=== PATIENT | female | born 1940 | race Caucasian/White ===

== ENCOUNTER → 2018-07-28 16:46 | Outpatient (CLI) | payer MEDICARE, OTHER, SELFPAY ==
--- NOTE | 2018-07-31 13:37 | PM.PFT.1 ---
Pulmonary Function Test Referral & Results Date Patient Seen: 07/28/18 Requesting provider: Aron Arango Indication: R06.02 Results: The spirometry demonstrates an FVC of 1.93 L which is 82% of predicted. The FEV1 was measured at 1.55 L which is 90% of predicted. The FEV1/FVC ratio was 81 which is 108% of predicted. Following the administration of bronchodilator there was 11% improvement in FEV1 and a 61% improvement in FEF 25-75%. Lung volumes show an SVC of 2.25 L which is 93% of predicted. The diffusing capacity was measured at 19.86 which is 98% of predicted. The maximum voluntary ventilation was reduced Interpretation: This study demonstrates very mild obstructive lung disease based on minimal reduction in FEV1 and shape of flow volume loop. There is evidence of minimal benefit following bronchodilator administration with an 11% improvement in FEV1 but more impressively a 61% improvement in FEF 25-75%, which suggest more significant improvement in small airway flow Lung volumes and diffusing capacity are normal
== END ==
PROVIDERS: Family Provider Internal Medicine; PCP Internal Medicine; Visit Provider Internal Medicine
DX: R06.02 Shortness of breath (principal)
CPT/HCPCS: 94060; 94726; 94729

== ENCOUNTER → 2018-08-14 09:25 | Outpatient (CLI) | payer MEDICARE, OTHER, SELFPAY ==
--- NOTE | 2018-08-14 | DI.ECHO.S_ITS ---
[facility]---------+ [facility] +---------+ : : [address] : [place] : : : : [id number] : : : : Phone: [phone]+ Echocardiogram Report + + :Name: SAM LOPEZ Study Date: 08/14/2018 Height: 61 in : :[facility] Weight: 133 lb : : Gender: Female BSA: 1.6 m2 : :: 1940 Age: 78 yrs BP: 160/80 mmHg: :Reason For Study: Aortic valve stenosis : : Performed By: Darcy Erwin : :Referring: RACHEL POZO : + + Interpretation Summary The patient was in atrial fibrillation with heart rates between 77-118 bpm during the exam. The left ventricle is normal in size. The ejection fraction is estimated to be 60-65%. E/E' med: 17.1 suggestive of elevated filling pressure. The right ventricle is grossly normal size. The right ventricular systolic function is normal. There is severe biatrial enlargement. A patent foramen ovale is present. The aortic valve is trileaflet. There is discrete nodular thickening of the non- coronary cusp. Leaflet mobility is mildly reduced. The peak aortic velocity is 1.7 m/sec. The aortic valve mean gradient is 5 mmHg. There is no hemodynamically significant valvular aortic stenosis. There is moderate to severe tricuspid regurgitation. The right ventricular systolic pressure is estimated to be at least 53 mmHg based on an estimated right atrial pressure of 15 mm Hg. There is mild luminal irregularity and echogenicity in the abdominal aorta, suggestive of aortic atherosclerotic disease. Mild atherosclerotic plaque(s) in the aortic arch. Procedure: A two-dimensional transthoracic echocardiogram with color flow and Doppler was performed. The study quality was technically adequate. Comparison is made with the echocardiogram of 09-16-13. The patient was in atrial fibrillation with heart rates between 77-118 bpm during the exam. Left Ventricle: The left ventricle is normal in size. Proximal septal thickening is noted. There is no echo evidence for significant left ventricular outflow tract obstruction. There is no thrombus. The ejection fraction is estimated to be 60-65%. There are no obvious focal wall motion abnormalities noted but poor endocardial definition reduces the sensitivity for the detection of such. Diastolic function could not be accurately assessed due to unobtainable data. Right Ventricle: The right ventricle is grossly normal size. The right ventricular systolic function is normal. Atria: The left atrium is severely dilated. There is severe biatrial enlargement. The right atrium is severely dilated. A patent foramen ovale is present. Mitral Valve: The mitral valve leaflets appear mildly thickened, but open well. The mitral valve leaflets are mildly calcified. There is mild mitral regurgitation. Aortic Valve: The aortic valve is trileaflet. There is mild aortic valve sclerosis. Leaflet mobility is mildly reduced. There is discrete nodular thickening of the non- coronary cusp. The calculated aortic valve area is 1.3 cm2. The aortic valve area is 1.3 centimeters squared by planimetry. The peak aortic velocity is 1.7 m/sec. The peak aortic velocity on the previous exam was 1.5 m/sec. The aortic valve mean gradient is 5 mmHg. There is no hemodynamically significant valvular aortic stenosis. No aortic regurgitation is present. Tricuspid Valve: The tricuspid annulus is dilated. There is moderate to severe tricuspid regurgitation. The right ventricular systolic pressure is estimated to be at least 53 mmHg based on an estimated right atrial pressure of 15 mm Hg. Pulmonic Valve: The pulmonic valve is not well seen, but is grossly normal. There is trace pulmonic regurgitation. Great Vessels: The aortic root is normal size. The ascending aorta is normal in size. The aortic arch is at the upper limits of normal in size. Mild atherosclerotic plaque(s) in the aortic arch. There is mild luminal irregularity and echogenicity in the abdominal aorta, suggestive of aortic atherosclerotic disease. The IVC is dilated (diameter is greater than 2.1 cm) and it collapses less than 50% with a sniff. This suggests a high right atrial pressure of 15 mm Hg. Pericardium/ Pleura There is an anterior echo-free space consistent with a fat pad. Cannot rule out trivial anterior pericardial effusion. No echo indication of tamponade. There is no pleural effusion. MMode/2D Measurements & Calculations LVIDd: 3.7 cm LVOT diam: 1.8 cm LVIDs: 2.4 cm Ao root diam: 3.2 cm FS: 36.3 % Aortic Jxn: 2.6 cm EPSS: 0.49 cm asc Aorta Diam: 3.2 cm IVSd: 0.71 cm Ao Arch Diam (Prox Trans): 3.1 cm LVPWd: 0.76 cm LV reynolds. diameter/BSA (cm/m^2): 2.3 LV sys. diameter/BSA (cm/m^2): 1.5 LA dimension: 4.1 cm RA long axis: 5.6 cm LA A2 area: 24.6 cm2 RA area: 23.5 cm2 LA A4 area: 27.9 cm2 RA vol: 83.2 ml LA length (vol): 6.4 cm RA : 52.4 ml/m2 LA vol: 91.1 ml RVDd major: 4.9 cm LA vol index: 57.3 ml/m2 RVD1 (basal): 3.8 cm RVD2 (mid): 3.8 cm YO (plan): 1.3 cm2 Doppler Measurements & Calculations Ao V2 max: 166.4 cm/sec LVOT Max Gilberto: 85.6 cm/sec Ao V2 mean: 105.1 cm/sec LV V1 max P.9 mmHg Ao max P.1 mmHg LV V1 VTI: 20.8 cm Ao mean P.3 mmHg YO(I,D): 1.4 cm2 Ao V2 VTI: 36.7 cm YO(V,D): 1.3 cm2 sev ratio: 0.57 YO indexed to BSA (cm^2/m^2): 0.90 MV E max gilberto: 115.5 cm/sec TR max gilberto: 308.8 cm/sec MV A max gilberto: 19.6 cm/sec TR max P.1 mmHg MV E/A: 5.9 PA V2 max: 111.9 cm/sec Med Peak E' Gilberto: 6.7 cm/sec PA V2 mean: 67.5 cm/sec E/E' med: 17.1 PA mean P.3 mmHg Lat Peak E' Gilberto: 7.7 cm/sec PA Accel Time: 0.09 sec E/E' lat: 15.0 E/e' average: 16.1 MV dec time: 0.21 sec MV P1/2t: 63.2 msec MV P1/2t max gilberto: 115.8 cm/sec SV(LVOT): 52.5 ml MVA(P1/2t): 3.5 cm2 Reading Physician:LA
== END ==
PROVIDERS: PCP Internal Medicine; Visit Provider Internal Medicine
DX: I08.3 Combined rheumatic disorders of mitral, aortic and tricuspid valves (principal); I48.91 Unspecified atrial fibrillation; Q21.1 Atrial septal defect
CPT/HCPCS: 93306

== ENCOUNTER → 2018-11-12 10:32 | Outpatient (CLI) | payer MEDICARE, OTHER, SELFPAY ==
--- NOTE | 2018-11-12 | DI.MG.S_ITS ---
BILATERAL DIGITAL SCREENING MAMMOGRAM 3D/2D WITH CAD: 11/12/2018 CLINICAL: Routine screening. Family history of breast cancer. Comparison is made to exams dated: 09/24/2017 mammogram, 08/23/2015 mammogram, and 08/10/2014 mammogram - [facility]. The tissue of both breasts is extremely dense, which lowers the sensitivity of mammography. Current study was also evaluated with a Computer Aided Detection (CAD) system. There are benign vascular calcifications in both breasts. No significant masses, calcifications, or other findings are seen in either breast. There has been no significant interval change. IMPRESSION: There is no mammographic evidence of malignancy. A 1 year screening mammogram is recommended. This exam was interpreted at Station ID: [id number]. NOTE: For mammograms, a report in lay terms will be sent to the patient. Approximately 15% of breast malignancies will not be visualized mammographically. In the management of a palpable breast mass, a negative mammogram must not discourage biopsy of a clinically suspicious lesion. Electronically Signed By: Lupe mann/bethany:11/12/2018 17:41:41 letter sent: Normal Exam ACR BI-RADS Category 2: Benign Finding(s) 3342F
== END ==
PROVIDERS: PCP Internal Medicine; Visit Provider Internal Medicine
DX: Z12.31 Encounter for screening mammogram for malignant neoplasm of breast (principal); Z80.3 Family history of malignant neoplasm of breast
CPT/HCPCS: 77063; 77067

== ENCOUNTER → 2019-02-25 11:40 | Outpatient (ROUT) | payer MEDICARE, OTHER, SELFPAY ==
[2019-02-25 12:00] LABS: Add Manual Diff / Slide Review NO; Basophils Absolute Auto 100 /uL (0-100); Basophils Percent Auto 0.9 % (0-2); Eosinophils Absolute Auto 100 /uL (0-450); Eosinophils Percent Auto 1.6 % (2-4); Hematocrit 40.8 % (36-46); Hemoglobin 13.5 g/dL (12.0-16.0); Lymphocytes Absolute Auto 1800 /uL (1100-4500); Lymphocytes Percent Auto 30.9 % (25-40); Mean Corpuscular HGB Conc 33.1 % (30-36); Mean Corpuscular Hemoglobin 29.6 PG (26-34); Mean Corpuscular Volume 89.5 fL (80-100); Monocytes Absolute Auto 600 /uL (0-900); Monocytes Percent Auto 11.4 % (3-14); Neutrophils Absolute Auto 3100 /uL (1500-7000); Neutrophils Percent Auto 55.2 % (50-75); Platelet Count 189 X10^3/uL (150-400); Red Blood Cell Count 4.56 X10^6/uL (4.0-5.2); Red Cell Distribution Width 14.4 % (11.6-14.8); White Blood Cell Count 5.7 X10^3/uL (4.5-11.0)
[2019-02-25 12:03] LABS: Alanine Aminotransferase 19 IU/L (9-52); Albumin 4.2 g/dL (3.5-5.0); Albumin Globulin Ratio 1.3 (1.0-2.8); Alkaline Phosphatase 82 U/L (38-126); Aspartate Aminotransferase 34 IU/L (14-36); BUN Creatinine Ratio 22.2 (6-22); Bilirubin Total 0.7 mg/dL (0.2-1.3); Blood Urea Nitrogen 20 mg/dL (7-17); C-Reactive Protein Quant 0.7 mg/dL (<1.0); Calcium 9.6 mg/dL (8.4-10.2); Carbon Dioxide 30 mmol/L (22-32); Chloride 102 mmol/L (98-107); Estimated Glomerular Filt Rate > 60.0 mL/min (>60); Globulin 3.2 g/dL (1.7-4.1); Glucose 55 mg/dL (80-110); HEMOLYSIS < 15 (0-50); Sodium 140 mmol/L (137-145); Total Protein 7.4 g/dL (6.3-8.2)
[2019-02-25 12:08] LABS: Prealbumin 19.1 mg/dL (17.6-36.0)
[2019-02-25 12:17] LABS: Erythrocyte Sedimentation Rate 12 MM/HR (0-20)
[2019-02-25 12:31] LABS: TSH w/ Reflex to FT4 2.83 uIU/mL (0.47-4.68)
== END ==
PROVIDERS: PCP Internal Medicine; Visit Provider Internal Medicine
DX: R63.4 Abnormal weight loss (principal)
CPT/HCPCS: 80053; 84134; 84443; 85025; 85651; 86140

== ENCOUNTER → 2019-03-06 09:43 | Outpatient (CLI) | payer MEDICARE, OTHER, SELFPAY ==
--- NOTE | 2019-03-06 | DI.CT.S_ITS ---
PROCEDURE: CT ABDOMEN PELVIS WO CON INDICATIONS: Unspecified abdominal pain TECHNIQUE: Noncontrast 5 mm thick sections acquired from the diaphragms to the symphysis. 5 mm coronal and sagittal reformats were then performed. For radiation dose reduction, the following was used: automated exposure control, adjustment of mA and/or kV according to patient size. COMPARISON: None. FINDINGS: Image quality: Excellent. ABDOMEN: Lung bases: Lung bases are clear. Heart size is mildly enlarged. Solid organs: Liver is normal in size. Gallbladder demonstrates gallstones within its lumen. Pancreas is normal in contours. Spleen is normal in size. No adrenal nodules. Kidneys are normal in size, without hydronephrosis or nephrolithiasis. Peritoneum and bowel: Unenhanced bowel loops demonstrate normal wall thickness and caliber. No free fluid or air. Nodes and vessels: No retroperitoneal or mesenteric adenopathy by size criteria. Aorta and inferior vena cava are normal in caliber. Atherosclerotic calcification is noted. Miscellaneous: No ventral hernias. PELVIS: Genitourinary: Bladder wall thickness is normal. Miscellaneous: No inguinal hernias or adenopathy. Bones: No suspicious bony lesions. Mild anterior wedge deformity again be seen of L4, without acute features. No acute appearing vertebral body compression fractures. Mild levoconvex scoliotic curvature is noted. Age-appropriate bony degenerative changes are seen. IMPRESSION: Gallstones are seen. If clinically appropriate, please consider a dedicated right upper quadrant ultrasound for further evaluation. Incidental note is made of: Mild cardiomegaly Levoconvex clinic curvature Dictated by: Fredy Bagley M.D. on 03/06/2019 at 9:33 Approved by: Fredy Bagley M.D. on 03/06/2019 at 9:38
== END ==
PROVIDERS: PCP Internal Medicine; Visit Provider Internal Medicine
DX: R10.9 Unspecified abdominal pain (principal); E16.2 Hypoglycemia, unspecified; R63.4 Abnormal weight loss; I51.7 Cardiomegaly; K80.80 Other cholelithiasis without obstruction
CPT/HCPCS: 74176

== ENCOUNTER → 2020-03-01 11:07 | Outpatient (CLI) | payer MEDICARE, OTHER, SELFPAY ==
[2020-03-01 13:26] LABS: Add Manual Diff / Slide Review NO; Basophils Absolute Auto 100 /uL (0-100); Basophils Percent Auto 1.1 % (0-2); Eosinophils Absolute Auto 100 /uL (0-450); Eosinophils Percent Auto 1.4 % (2-4); Hematocrit 44.4 % (36-46); Hemoglobin 14.7 g/dL (12.0-16.0); Lymphocytes Absolute Auto 1800 /uL (1100-4500); Lymphocytes Percent Auto 32.9 % (25-40); Mean Corpuscular HGB Conc 33.1 % (30-36); Mean Corpuscular Hemoglobin 29.7 PG (26-34); Mean Corpuscular Volume 89.5 fL (80-100); Monocytes Absolute Auto 400 /uL (0-900); Monocytes Percent Auto 7.1 % (3-14); Neutrophils Absolute Auto 3200 /uL (1500-7000); Neutrophils Percent Auto 57.5 % (50-75); Platelet Count 174 X10^3/uL (150-400); Red Blood Cell Count 4.96 X10^6/uL (4.0-5.2); Red Cell Distribution Width 14.6 % (11.6-14.8); White Blood Cell Count 5.6 X10^3/uL (4.5-11.0)
[2020-03-01 13:48] LABS: BUN Creatinine Ratio 21.9 (6-22); Blood Urea Nitrogen 23 mg/dL (7-17); Calcium 9.6 mg/dL (8.4-10.2); Carbon Dioxide 34 mmol/L (22-32); Chloride 101 mmol/L (98-107); Cholesterol 248 mg/dL (140-199); Estimated Glomerular Filt Rate 50.6 mL/min (>60); Glucose 81 mg/dL (80-110); HDL Cholesterol 90 mg/dL (40-60); HEMOLYSIS < 15 (0-50); LDL Cholesterol Calculated 136 mg/dL (<100); Potassium 4.4 mmol/L (3.4-5.1); Sodium 140 mmol/L (137-145); Triglycerides 110 mg/dL (35-150)
== END ==
PROVIDERS: PCP Internal Medicine; Referring Provider Internal Medicine Cardiovascular Disease; Visit Provider Nurse Practitioner
DX: E78.5 Hyperlipidemia, unspecified (principal); I73.9 Peripheral vascular disease, unspecified; I10 Essential (primary) hypertension
CPT/HCPCS: 36415; 80048; 80061; 85025

== ENCOUNTER → 2020-03-25 08:53 | Outpatient (CLI) | payer MEDICARE, OTHER, SELFPAY ==
[2020-03-27 18:23] LABS: COVID19 Sendout Not Detected (Not Detect)
== END ==
PROVIDERS: PCP Internal Medicine; Visit Provider Nurse Practitioner
DX: Z11.59 Encounter for screening for other viral diseases (principal)
CPT/HCPCS: 87635

== ENCOUNTER → 2020-03-28 09:07 | Outpatient (CLI) | payer MEDICARE, OTHER, SELFPAY ==
--- NOTE | 2020-03-28 | DI.US.S_ITS ---
PROCEDURE: US CAROTID DOPPLER BI INDICATIONS: Essential (primary) hypertension TECHNIQUE: Color and pulse Doppler interrogation was performed of both carotid systems, with image documentation and velocity measurements. COMPARISON: None. FINDINGS: Stenosis calculations are based on SRU (Society of Radiologists in Ultrasound) criteria. Right side: Brachial blood pressure: 175/95 mm Hg. Common carotid artery peak systolic velocity: 63 cm/sec. Internal carotid artery peak systolic velocity: 118 cm/sec. Internal carotid artery end diastolic velocity: 36 cm/sec. External carotid artery peak systolic velocity: 104 cm/sec. ICA/CCA peak systolic ratio: 1.9 . Taveras scale imaging description: Atheromatous plaquing calcification is present at the carotid bifurcation. Percent internal carotid artery stenosis: Less than 50% stenosis. Vertebral artery: Flow direction is antegrade. Left side: Brachial blood pressure: 175/91 mm Hg. Common carotid artery peak systolic velocity: 53.5 cm/sec. Internal carotid artery peak systolic velocity: 70 cm/sec. Internal carotid artery end diastolic velocity: 22 cm/sec. External carotid artery peak systolic velocity: 47 cm/sec. ICA/CCA peak systolic ratio: 1.3 . Taveras scale imaging description: Atheromatous plaquing calcification is present at the carotid bifurcation. Percent internal carotid artery stenosis: Less than 50% stenosis. Vertebral artery: Flow direction is antegrade. IMPRESSION: Less than 50% stenosis of the bilateral internal carotid arteries. Dictated by: Shannon Norwood M.D. on 03/28/2020 at 12:26 Approved by: Shannon Norwood M.D. on 03/28/2020 at 12:28
--- NOTE | 2020-03-28 | DI.ECHO.S_ITS ---
[facility]---------+ [facility] +---------+ : : [address] : [place] : : : : [id number] : : : : Phone: [phone] : [phone]+ Echocardiogram Report + + :Name: SAM LOPEZ Study Date: 03/28/2020 Height: 61 in : :[facility] Weight: 130 lb : : Gender: Female BSA: 1.6 m2 : :: 1940 Age: 79 yrs BP: 168/91 mmHg: :Reason For Study: Hypertension : :Ordering Physician: MARJORIE, : :SARAH CRUZ Performed By: Lorene Lay : :Referring: SARAH AMADOR : + + Interpretation Summary The patient was in atrial fibrillation with controlled ventricular rate during the exam. Normal left ventricle size with ejection fraction 60-65%. Severe biatrial enlargement. The aortic valve is mildly calcified. Mild mitral annular calcification. Mild mitral regurgitation. Moderate to severe tricuspid regurgitation. The right ventricular systolic pressure is estimated to be at least 48 mmHg based on an estimated right atrial pressure of 8 mm Hg. Comparison is made with the echocardiogram of 08/14/2018, there has been no significant change. Procedure: A two-dimensional transthoracic echocardiogram with color flow and Doppler was performed. The study quality was technically adequate. Comparison is made with the echocardiogram of 08/14/2018. The patient was in atrial fibrillation with controlled ventricular rate during the exam. Left Ventricle: The left ventricle is normal in size and wall thickness. The ejection fraction is estimated to be 60-65%. There are no focal wall motion abnormalities. Diastolic function could not be accurately assessed due to atrial fibrillation. Right Ventricle: The right ventricle is normal in size and function. Atria: There is severe biatrial enlargement. There is no Doppler evidence for an interatrial shunt. Mitral Valve: The mitral valve leaflets appear mildly thickened, but open well. There is mild mitral annular calcification. There is mild mitral regurgitation. Aortic Valve: The aortic valve is trileaflet. The aortic valve is mildly calcified. There is no aortic valve stenosis. No aortic regurgitation is present. Tricuspid Valve: The tricuspid valve is normal in structure but is abnormal in function. There is moderate to severe tricuspid regurgitation. The right ventricular systolic pressure is estimated to be at least 48 mmHg based on an estimated right atrial pressure of 8 mm Hg. Pulmonic Valve: The pulmonic valve is not well seen, but is grossly normal. There is mild pulmonic regurgitation. Great Vessels: The aortic root is normal size. The ascending aorta is normal in size. The IVC is of normal diameter and collapses less than 50% with a sniff. This suggests a right atrial pressure of 8 mm Hg. Pericardium/ Pleura There is no pericardial effusion. There is no pleural effusion. MMode/2D Measurements & Calculations LVIDd: 4.3 cm LVOT diam: 1.9 cm LVIDs: 2.6 cm Ao root diam: 3.0 cm FS: 38.6 % asc Aorta Diam: 3.4 cm EPSS: 0.41 cm Ao Arch Diam (Prox Trans): 2.7 cm IVSd: 0.94 cm LVPWd: 0.86 cm LV reynolds. diameter/BSA (cm/m^2): 2.7 LV sys. diameter/BSA (cm/m^2): 1.7 LA A2 area: 23.5 cm2 RA long axis: 5.9 cm LA A4 area: 25.2 cm2 RA area: 22.3 cm2 LA length (vol): 6.5 cm RA vol: 71.5 ml LA vol: 77.6 ml RA : 45.5 ml/m2 LA vol index: 49.3 ml/m2 IVC diam: 1.9 cm RVD1 (basal): 3.8 cm TAPSE: 2.1 cm Doppler Measurements & Calculations Ao V2 max: 169.0 cm/sec LVOT Max Gilberto: 91.7 cm/sec Ao V2 mean: 118.1 cm/sec LV V1 max P.4 mmHg Ao max P.4 mmHg LV V1 VTI: 22.6 cm Ao mean P.3 mmHg YO(I,D): 1.6 cm2 Ao V2 VTI: 40.2 cm YO(V,D): 1.6 cm2 sev ratio: 0.56 YO indexed to BSA (cm^2/m^2): 1.0 MV E max gilberto: 119.0 cm/sec TR max gilberto: 314.5 cm/sec MV A max gilberto: 0.67 cm/sec TR max P.6 mmHg MV E/A: 177.2 PA V2 max: 66.3 cm/sec Med Peak E' Gilberto: 6.7 cm/sec PA V2 mean: 46.2 cm/sec E/E' med: 17.8 PA mean P.00 mmHg Lat Peak E' Gilberto: 7.9 cm/sec PA pr(Accel): 39.6 mmHg E/E' lat: 15.1 E/e' average: 16.5 MV dec time: 0.16 sec SV(OT): 64.8 ml Electronically signed by: Armando Sheehan on Reading Physician:03/28/2020 05:02 PM
--- NOTE | 2020-03-28 17:42 | DI.NM.S_ITS ---
DATE OF SERVICE: 03/28/2020 PROCEDURE PERFORMED: Exercise treadmill stress and rest myocardial perfusion imaging with gating to assess ejection fraction and regional wall motion. ORDERING PROVIDER: Dr. Guilherme Shane. INDICATIONS: The patient is a 79-year-old female with peripheral arterial disease and atrial fibrillation. EXERCISE TREADMILL TESTING: The patient was able to exercise for 6 minutes on a standard [place] protocol suggesting excellent exercise capacity with an SHEA of - 24%. She had an accelerated heart rate and blood pressure response to exercise, likely due to holding her medications with a resting heart rate of 107 BPM that increased to a maximum of 197 BPM (140% of her predicted maximum and a resting blood pressure of 150/100, which increased to a peak of 210/100. She had no chest discomfort but had some mild dyspnea. Her resting ECG shows atrial fibrillation, but is otherwise fairly normal. With exercise she develops subtle ST- segment shifts that are nonspecific and occasional wide QRS beats, occasionally couplets and triplets, which may reflect aberrant conduction versus ventricular ectopy. At 5 minutes of exercise, at a heart rate of 173 BPM, 25.6 millicuries of technetium-99m Myoview was injected and she was imaged 20 minutes later using a gated SPECT acquisition protocol. Earlier in the day while at rest, she had been injected with 10.3 millicuries of technetium-99m Myoview and was imaged 30 minutes later, again using a gated SPECT acquisition protocol. FINDINGS: 1. Raw Data: There is good myocardial tracer uptake. The lung/heart ratio is normal at 0.33 with a normal TID ratio of 0.80. 2. Quantitated gated SPECT: Post-stress ejection fraction is estimated at 84% without any focal wall motion abnormality. Resting ejection fraction is estimated at 86% with an end-diastolic volume of 59 mL. 3. Myocardial perfusion imaging: Post-stress supine images show a normal perfusion pattern without any perfusion defects, supported by normal perfusion imaging in the prone position. The resting images show no areas of improvement. CONCLUSION: 1. Normal myocardial perfusion study. 2. No evidence of myocardial ischemia or previous myocardial infarction. 3. Normal left ventricular systolic function with relatively small left ventricular volumes. 4. Very good exercise capacity without angina and only subtle, nonspecific ST- segment shifts, likely due to her accelerated heart rate and blood pressure response to exercise. She had occasional PVCs, couplets and triplets which may reflect aberrant conduction. 5. Compared to the previous myocardial perfusion study of 06/14/2008, there has been no significant change as her perfusion imaging was normal at that time as well, and her ejection fraction was estimated at 82%. She was in atrial fibrillation at that time with a maximum heart rate of 200 BPM and had mild nonspecific ST-segment changes as well. Vicki Petra - NORM/adriana/jeanna doc#: [id number]/job#: [id number] dd: 03/28/2020 16:30:00 dt: 03/28/2020 17:22:00 DICTATING MD/COPIES TO: Kar Mcneill MD; Guilherme Shane MD COPIES MNE: TREY;
== END ==
PROVIDERS: PCP Internal Medicine; Referring Provider Nurse Practitioner; Visit Provider Nurse Practitioner
DX: I08.1 Rheumatic disorders of both mitral and tricuspid valves (principal); I65.23 Occlusion and stenosis of bilateral carotid arteries; I48.20 Chronic atrial fibrillation, unspecified; I70.212 Atherosclerosis of native arteries of extremities with intermittent claudication, left leg; I10 Essential (primary) hypertension; E78.5 Hyperlipidemia, unspecified
CPT/HCPCS: 78452; 93017; 93306; 93880; A9502

== ENCOUNTER → 2020-09-19 16:00 | Outpatient (CLI) | payer MEDICARE, OTHER, SELFPAY ==
[2020-09-19 17:09] LABS: BUN Creatinine Ratio 24.1 (6-22); Blood Urea Nitrogen 26 mg/dL (7-17); Calcium 9.8 mg/dL (8.4-10.2); Carbon Dioxide 33 mmol/L (22-32); Chloride 103 mmol/L (98-107); Estimated Glomerular Filt Rate 48.8 mL/min (>60); Glucose 97 mg/dL (80-110); HEMOLYSIS < 15 (0-50); Potassium 4.2 mmol/L (3.4-5.1); Sodium 139 mmol/L (137-145)
== END ==
PROVIDERS: PCP Internal Medicine; Referring Provider Physician Assistant; Visit Provider Physician Assistant
DX: I48.21 Permanent atrial fibrillation (principal)
CPT/HCPCS: 36415; 80048

== ENCOUNTER → 2020-10-12 08:27 | Outpatient (CLI) | payer MEDICARE, OTHER, SELFPAY ==
--- NOTE | 2020-10-12 | DI.MG.S_ITS ---
BILATERAL DIGITAL SCREENING MAMMOGRAM 3D/2D WITH CAD: 10/12/2020 CLINICAL: Routine screening. Family history of breast cancer. Comparison is made to exams dated: 11/12/2018 mammogram, 09/24/2017 mammogram, 08/23/2015 mammogram, and 08/10/2014 mammogram - [facility]. The tissue of both breasts is extremely dense, which lowers the sensitivity of mammography. Current study was also evaluated with a Computer Aided Detection (CAD) system. There is possible developing architectural distortion in the right breast anterior depth central to the nipple seen on the mediolateral oblique view only. No other significant masses, calcifications, or other findings are seen in either breast. IMPRESSION: INCOMPLETE: NEEDS ADDITIONAL IMAGING EVALUATION The possible developing architectural distortion in the right breast is indeterminate. Additional views with possible ultrasound are recommended. This exam was interpreted at Station ID: [id number]. NOTE: For mammograms, a report in lay terms will be sent to the patient. Approximately 15% of breast malignancies will not be visualized mammographically. In the management of a palpable breast mass, a negative mammogram must not discourage biopsy of a clinically suspicious lesion. Electronically Signed By: John Moreno M.D. slc/:10/12/2020 11:22:52 letter sent: Additional Imaging Needed ACR BI-RADS Category 0: Incomplete 3340F
== END ==
PROVIDERS: PCP Nurse Practitioner; Referring Provider Nurse Practitioner; Visit Provider Nurse Practitioner
DX: Z12.31 Encounter for screening mammogram for malignant neoplasm of breast (principal); Z80.3 Family history of malignant neoplasm of breast
CPT/HCPCS: 77063; 77067

== ENCOUNTER → 2020-10-24 13:32 | Outpatient (CLI) | payer MEDICARE, OTHER, SELFPAY ==
--- NOTE | 2020-10-24 | DI.MG.S_ITS ---
UNILATERAL RIGHT DIGITAL DIAGNOSTIC MAMMOGRAM 3D/2D WITH ADDITIONAL VIEWS: 10/24/2020 CLINICAL: Additional evaluation requested from prior study. Comparison is made to exams dated: 10/12/2020 mammogram, 11/12/2018 mammogram, and 09/24/2017 mammogram - [facility]. The tissue of right breast is extremely dense, which lowers the sensitivity of mammography. Prior area of architectural distortion is no longer convincingly seen in the right breast in the sub-areolar depth. No significant masses, calcifications, or other findings are seen in the breast. IMPRESSION: INCOMPLETE: NEEDS ADDITIONAL IMAGING EVALUATION Near complete resolution of screening mammography abnormality with additional views. Ultrasound evaluation to confirm resolution is recommended and was performed immediately following this exam. This exam was interpreted at Station ID: [id number]. NOTE: For mammograms, a report in lay terms will be sent to the patient. Approximately 15% of breast malignancies will not be visualized mammographically. In the management of a palpable breast mass, a negative mammogram must not discourage biopsy of a clinically suspicious lesion. Electronically Signed By: Lupe mann/:10/24/2020 14:00:00 ACR BI-RADS Category 0: Incomplete [id number]
--- NOTE | 2020-10-24 13:34 | DI.US.S_ITS ---
LIMITED ULTRASOUND OF RIGHT BREAST: 10/24/2020 CLINICAL: Patient returns today to evaluate a focal asymmetry in the right breast. Comparison is made to exams dated: 10/24/2020 mammogram, 10/12/2020 mammogram, 11/12/2018 mammogram, and 09/24/2017 mammogram - [facility]. Real-time ultrasound of the right breast retroareolar was performed. Taveras scale images of the real-time examination were reviewed. No significant abnormalities were seen sonographically in the right breast. Specifically, no finding to correspond to the patient's predominantly resolved screening mammographic abnormality. IMPRESSION: PROBABLY BENIGN There is no sonographic correlate to the patient's screening mammography abnormality. A follow-up right mammogram in 6 months is recommended to demonstrate stability of the mammographic finding. Findings and recommendations were conveyed to the patient at time of exam. This exam was interpreted at Station ID: [id number]. Electronically Signed By: Lupe mann/:10/24/2020 14:23:55 letter sent: Followup Recommended Ultrasound BI-RADS: 3 Probably benign
== END ==
PROVIDERS: PCP Nurse Practitioner; Referring Provider Nurse Practitioner; Visit Provider Nurse Practitioner
DX: R92.8 Other abnormal and inconclusive findings on diagnostic imaging of breast (principal); N64.89 Other specified disorders of breast
CPT/HCPCS: 76642; 77065; G0279

== ENCOUNTER 2021-02-22 10:15 | Outpatient (RCR) | payer MEDICARE, OTHER, SELFPAY ==
--- NOTE | 2021-02-01 15:52 | PT.OIE ---
Current Diagnoses Low back pain (02/01/21) Muscle spasm of back (02/01/21) Past Medical History (Last Reviewed 01/23/21 @ 10:19 by ANTHONY Martinez) Atrial fibrillation Chronic anticoagulation Hypertension Hypokalemia Past Surgical History (Last Reviewed 01/23/21 @ 10:19 by ANTHONY Martinez) History of carpal tunnel repair History of lumpectomy Status post dilation and curettage Status post laparoscopy Status post surgery (08/02/17) Visit Care Team Role Provider Type ANTHONY Martinez Attending Provider Advanced Doctor Of Medicine Primary Care Provider Referring Provider Specialty: [facility] Address: [address] [place] [address] Email: [email or web address] Physical Therapy Initial Evaluation PT-OP-A Visit Information Start: 02/01/21 07:26 Freq: Status: Active Protocol: Document 02/01/21 10:15 AMB (Rec: 02/02/21 15:48 AMB [email or web address]) Out-Patient Physical Therapy Visit Information Visit Information Visit Type Initial Evaluation Visit Start Time 10:15 Visit Stop Time 11:00 Total Visit Minutes 45 Visit Number 1 PT-OP-B Current Condition Start: 02/01/21 07:26 Freq: Status: Active Protocol: Document 02/01/21 10:15 AMB (Rec: 02/01/21 10:31 AMB [id number]) Current Condition History of Current Condition Onset Date 3 weeks Current Complaints R sharp pain in LB/hip; dull chronic muscle spasm in midback History of Current Condition R sharp pain in back 1-2x/week generally happens with walking or twisting to the right. Also notes L dull pain in low back 1-2x/week, chronic. Mid back muscle spasms bilaterally for at least a year on and off generally for a week of pain and then a week where its better. Progressively worsening pain. Treatment Goals Patient/Caregiver Goals Reduce pain so she can walk around her acreage doing yardwork without pain Prior Functional Status Baseline Function- ADL's Independent Baseline Function- Mobility Independent Current Functional Impairments (Reported) Functional Limitations- ADL's Limited walking, bending, yardwork Personal Factors Other Personal Factors That May Effect Pt states she has not been Therapy/Recovery tested for osteoporosis ever, hypertension, afib, asthma PT-OP-C Subjective Start: 02/01/21 07:26 Freq: Status: Active Protocol: Document 02/01/21 10:15 AMB (Rec: 02/02/21 15:48 AMB [email or web address]) Patient Questionnaires Oswestry Low Back Index Oswestry Score 8 Oswestry Impairment 1 to 19% Impaired (Score 1-19) OP-PT Pain Assessment Comments Pain Comments Bilateral paraspinal muscle spasms, R gluteal pain neither of which currently bad PT-OP-G Mobility & Gait Start: 02/01/21 07:26 Freq: Status: Active Protocol: Document 02/01/21 10:15 AMB (Rec: 02/02/21 15:50 AMB [email or web address]) OP Gait Assessment Comments Gait Comments Petra ambulates without AD with decreased trunk rotation but appropriate speed. 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 Palpation Assessment Location One Palpation Details Tightness throughout paraspinals, guarding and tightness on R>L QL and gluteals PT-OP-K Range of Motion Start: 02/01/21 07:26 Freq: Status: Active Protocol: Document 02/01/21 10:15 AMB (Rec: 02/02/21 15:48 AMB [email or web address]) Lumbar Spine Range of Motion Lumbar Spine Active Degrees Testing Position Standing Flexion 20 Extension 0 Lateral Flexion Left 15 Lateral Flexion Right 15 Comments extension painful- hypermobile throughout thoracic spine, lumbar spine never moves out of lordotic posture even with flexion, needs UE support to come back up from flexion PT-OP-L Special Tests Start: 02/01/21 07:26 Freq: Status: Active Protocol: Document 02/01/21 10:15 AMB (Rec: 02/02/21 15:48 AMB [email or web address]) Special Tests Lumbar Spine Special Tests Straight Leg Raise Test Results - PT-OP-M Strength Start: 02/01/21 07:26 Freq: Status: Active Protocol: Document 02/01/21 10:15 AMB (Rec: 02/02/21 15:50 AMB [email or web address]) Hip Strength Hip Manual Muscle Testing Right Flexion (L2) 4 Good Extension (S1) 4- Good- Abduction 4 Good Left Flexion (L2) 4 Good Extension (S1) 4 Good Abduction 4 Good PT-OP-Q Treatments Start: 02/01/21 07:26 Freq: Status: Active Protocol: Document 02/01/21 10:15 AMB (Rec: 02/02/21 15:48 AMB [email or web address]) Therapeutic Exercises Standing Exercises t band row Resistance #2 Reps/Minutes 10 Comments cues for core stabilization pec stretch Reps/Minutes 30x2 Comments in doorway- approx 70 d abd to avoid shoulder pain PT-OP-T Assessment and Plan Start: 02/01/21 07:26 Freq: Status: Active Protocol: Document 02/01/21 10:15 AMB (Rec: 02/02/21 15:48 AMB [email or web address]) Physical Therapy Assessment Goals Two Impairment Body mechanics Short Term Goal (STG) Petra will lift 10# from the floor to waist height with good body mechanics. STG Duration 4 weeks Custodial Goal (LTG) Petra will employ good body mechanics to perform yardowork for 1 hour without a rebound increase in her pain. LTG Duration 8 weeks Three Impairment ROM Short Term Goal (STG) Petra will show improved lumbar ROM to 10 degrees of active extension without an increase in back pain. STG Duration 4 weeks One Impairment Pain Short Term Goal (STG) Petra will walk through the grocery store without an increase in her back pain. STG Duration 4 weeks Custodial Goal (LTG) Petra will be independent and consistent with a HEP to reduce her back pain. LTG Duration 8 weeks Assessment Summary Assessment Petra attends physical therapy with really three separate back pain issues. She has chronic paraspinal thoracic spasms that come and go. Encouraged her to follow up regarding osteoporosis diagnostics given this and her posture and started educating her in regards to lifting mechanics and stretching anterior muscles, strengthening posterior muscles. She also attends with chronic L low back and acute sharp R low back pain. I was unable to reproduce her R low back pain with testing of the lumbar spine or hip during treatment, but would encourage her in core stability and body mechanics training and then further evaluate it at follow up visits. Physical Therapy Plan Frequency and Duration Frequency of Treatment 2x/Week Duration of Treatment 8 weeks Plan of Care Start Date 02/01/21 Plan of Care End Date 03/29/21 Therapeutic Interventions Therapeutic Interventions Gait Training,Home Exercise Program,Joint Mobilizations, Manual Therapy,Neuromuscular Re-education,Self-Care/Home Management,Therapeutic Activities,Therapeutic Exercises Modalities Cold Pack/Ice Massage,Electric Stimulation,Hot Packs Next Visit Focus/Plan Next Note Type Treatment Note Next Visit Plan Review t band rows and pec stretch HEP. Discuss body mechanics (core stabilization, avoiding lifting/twisting motions).
--- NOTE | 2021-02-01 15:52 | PT.OPPOC ---
Physical, Occupational & Speech Therapy At [facility] Current Diagnoses Low back pain (02/01/21) Muscle spasm of back (02/01/21) Visit Care Team Role Provider Type ANTHONY Martinez Attending Provider Advanced Treating Plant Supervisor Primary Care Provider Referring Provider Specialty: Family Practice Address: [address] [place] [address], [facility] Email: [email or web address] Plan Of Care PT-OP-T Assessment and Plan Start: 02/01/21 07:26 Freq: Status: Active Protocol: Document 02/01/21 10:15 AMB (Rec: 02/02/21 15:48 AMB [email or web address]) Physical Therapy Assessment Goals Two Impairment Body mechanics Short Term Goal (STG) Petra will lift 10# from the floor to waist height with good body mechanics. STG Duration 4 weeks Alf Goal (LTG) Petra will employ good body mechanics to perform yardowork for 1 hour without a rebound increase in her pain. LTG Duration 8 weeks Three Impairment ROM Short Term Goal (STG) Petra will show improved lumbar ROM to 10 degrees of active extension without an increase in back pain. STG Duration 4 weeks One Impairment Pain Short Term Goal (STG) Petra will walk through the grocery store without an increase in her back pain. STG Duration 4 weeks Alf Goal (LTG) Petra will be independent and consistent with a HEP to reduce her back pain. LTG Duration 8 weeks Assessment Summary Assessment Petra attends physical therapy with really three seperate back pain issues. She has chronic paraspinal thoracic spasms that come and go. Encouraged her to follow up regarding osteoporosis diagnostics given this and her posture and started educating her in regards to lifting mechanics and stretching anterior muscles, strengthening posterior muscles. She also attends with chronic L low back and acute sharp R low back pain. I was unable to reproduce her R low back pain with testing of the lumbar spine or hip during treatment, but would encourage her in core stability and body mechanics training and then further evaluate it at follow up visits. Physical Therapy Plan Frequency and Duration Frequency of Treatment 2x/Week Duration of Treatment 8 weeks Plan of Care Start Date 02/01/21 Plan of Care End Date 03/29/21 Therapeutic Interventions Therapeutic Interventions Gait Training,Home Exercise Program,Joint Mobilizations, Manual Therapy,Neuromuscular Re-education,Self-Care/Home Management,Therapeutic Activities,Therapeutic Exercises Modalities Cold Pack/Ice Massage,Electric Stimulation,Hot Packs Next Visit Focus/Plan Next Note Type Treatment Note Next Visit Plan Review t band rows and pec stretch HEP. Discuss body mechanics (core stabilization, avoiding lifting/twisting motions). Plan of Care Dates Plan of Care Start Date 02/01/21 Plan of Care End Date 03/29/21 Electronically Signed by: Marivel Cohen, PT 02/02/21 [id number] Please Sign and Return: I have reviewed this Plan of Care and certify that the skilled therapy services above are required to meet the patient?s needs. Physician Signature Date Printed Name and Credentials Clinical Instructor Signature Printed Name and Credentials
--- NOTE | 2021-02-06 16:43 | PT.OTN ---
Current Diagnoses Low back pain (02/06/21) Muscle spasm of back (02/06/21) Physical Therapy Treatment Note PT-OP-A Visit Information Start: 02/01/21 07:26 Freq: Status: Active Protocol: Document 02/06/21 14:33 SAK (Rec: 02/06/21 15:15 SAK [id number]) Out-Patient Physical Therapy Visit Information Visit Information Visit Type Treatment Note Visit Start Time 14:30 Visit Stop Time 15:15 Total Visit Minutes 45 Visit Number 2 PT-OP-B Current Condition Start: 02/01/21 07:26 Freq: Status: Active Protocol: Document 02/01/21 10:15 AMB (Rec: 02/01/21 10:31 AMB [id number]) Current Condition History of Current Condition Onset Date 3 weeks Current Complaints R sharp pain in LB/hip; dull chronic muscle spasm in midback History of Current Condition R sharp pain in back 1-2x/week generally happens with walking or twisting to the right. Also notes L dull pain in low back 1-2x/week, chronic. Mid back muscle spasms bilaterally for at least a year on and off generally for a week of pain and then a week where its better. Progressively worsening pain. Treatment Goals Patient/Caregiver Goals Reduce pain so she can walk around her acreage doing yardwork without pain Prior Functional Status Baseline Function- ADL's Independent Baseline Function- Mobility Independent Current Functional Impairments (Reported) Functional Limitations- ADL's Limited walking, bending, yardwork Personal Factors Other Personal Factors That May Effect Pt states she has not been Therapy/Recovery tested for osteoporosis ever, hypertension, afib, asthma PT-OP-C Subjective Start: 02/01/21 07:26 Freq: Status: Active Protocol: Document 02/06/21 14:33 SAK (Rec: 02/06/21 15:15 SAK [id number]) OP-PT Subjective Patient Comments Patient Comments No new c/o, hoping to get back to gardening. Reports I think I know how I should lift but don't always do it. PT-OP-G Mobility & Gait Start: 02/01/21 07:26 Freq: Status: Active Protocol: Document 02/01/21 10:15 AMB (Rec: 02/02/21 15:50 AMB [email or web address]) OP Gait Assessment Comments Gait Comments Petra ambulates without AD with decreased trunk rotation but appropriate speed. 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 Palpation Assessment Location One Palpation Details Tightness throughout paraspinals, guarding and tightness on R>L QL and gluteals PT-OP-K Range of Motion Start: 02/01/21 07:26 Freq: Status: Active Protocol: Document 02/01/21 10:15 AMB (Rec: 02/02/21 15:48 AMB [email or web address]) Lumbar Spine Range of Motion Lumbar Spine Active Degrees Testing Position Standing Flexion 20 Extension 0 Lateral Flexion Left 15 Lateral Flexion Right 15 Comments extension painful- hypermobile throughout thoracic spine, lumbar spine never moves out of lordotic posture even with flexion, needs UE support to come back up from flexion PT-OP-L Special Tests Start: 02/01/21 07:26 Freq: Status: Active Protocol: Document 02/01/21 10:15 AMB (Rec: 02/02/21 15:48 AMB [email or web address]) Special Tests Lumbar Spine Special Tests Straight Leg Raise Test Results - PT-OP-M Strength Start: 02/01/21 07:26 Freq: Status: Active Protocol: Document 02/01/21 10:15 AMB (Rec: 02/02/21 15:50 AMB [email or web address]) Hip Strength Hip Manual Muscle Testing Right Flexion (L2) 4 Good Extension (S1) 4- Good- Abduction 4 Good Left Flexion (L2) 4 Good Extension (S1) 4 Good Abduction 4 Good PT-OP-Q Treatments Start: 02/01/21 07:26 Freq: Status: Active Protocol: Document 02/06/21 14:33 SAK (Rec: 02/06/21 15:15 SAK [id number]) Therapeutic Exercises Supine Exercises postural isometric Reps/Minutes 5x chin tuck Reps/Minutes 5x segmental bridge Reps/Minutes 10x Sidelying Exercises open book Reps/Minutes 3x ea side Standing Exercises hip hinge sit to stand Equipment Used yardstick Reps/Minutes 6x shoulder extension Resistance L2 TB Reps/Minutes 10x t band row Resistance #2 Reps/Minutes 10 Comments cues for core stabilization pec stretch Reps/Minutes 30x2 Comments in doorway- approx 70 d abd to avoid shoulder pain Self-Care/Home Management Treatment Education Patient Education Body Mechanics,Posture,Safety Other Education lifting technique stressing close to object, hip hinge, long spine, bend knees, no twisting Issued written handout PT-OP-T Assessment and Plan Start: 02/01/21 07:26 Freq: Status: Active Protocol: Document 02/06/21 14:33 [facility] (Rec: 02/06/21 15:15 [facility] [id number]) Physical Therapy Assessment Goals Two Impairment Body mechanics Short Term Goal (STG) Petra will lift 10# from the floor to waist height with good body mechanics. STG Duration 4 weeks Geographic Information Scientist Goal (LTG) Petra will employ good body mechanics to perform yardowork for 1 hour without a rebound increase in her pain. LTG Duration 8 weeks Three Impairment ROM Short Term Goal (STG) Petra will show improved lumbar ROM to 10 degrees of active extension without an increase in back pain. STG Duration 4 weeks One Impairment Pain Short Term Goal (STG) Petra will walk through the grocery store without an increase in her back pain. STG Duration 4 weeks Residential Goal (LTG) Petra will be independent and consistent with a HEP to reduce her back pain. LTG Duration 8 weeks Assessment Summary Assessment Mod verbal and manual cues required for postural alignment and core stabilization with all ex and body mechanics education. Denied increase in pain with ex. Issued written handout for HEP. Physical Therapy Plan Frequency and Duration Frequency of Treatment 2x/Week Duration of Treatment 8 weeks Plan of Care Start Date 02/01/21 Plan of Care End Date 03/29/21 Therapeutic Interventions Therapeutic Interventions Gait Training,Home Exercise Program,Joint Mobilizations, Manual Therapy,Neuromuscular Re-education,Self-Care/Home Management,Therapeutic Activities,Therapeutic Exercises Modalities Cold Pack/Ice Massage,Electric Stimulation,Hot Packs Next Visit Focus/Plan Next Note Type Treatment Note Next Visit Plan Add open book to written HEP if tashi well. Continue posture and body mechanics education. Progress exercises as tolerated, add lunges to ther ex if tolerated.
--- NOTE | 2021-02-17 16:00 | PT.OTN ---
Current Diagnoses Low back pain (02/17/21) Muscle spasm of back (02/17/21) Physical Therapy Treatment Note PT-OP-A Visit Information Start: 02/01/21 07:26 Freq: Status: Active Protocol: Document 02/17/21 14:15 AMB (Rec: 02/18/21 08:24 AMB [email or web address]) Out-Patient Physical Therapy Visit Information Visit Information Visit Type Treatment Note Visit Start Time 14:15 Visit Stop Time 15:00 Total Visit Minutes 45 Visit Number 3 PT-OP-B Current Condition Start: 02/01/21 07:26 Freq: Status: Active Protocol: Document 02/01/21 10:15 AMB (Rec: 02/01/21 10:31 AMB [id number]) Current Condition History of Current Condition Onset Date 3 weeks Current Complaints R sharp pain in LB/hip; dull chronic muscle spasm in midback History of Current Condition R sharp pain in back 1-2x/week generally happens with walking or twisting to the right. Also notes L dull pain in low back 1-2x/week, chronic. Mid back muscle spasms bilaterally for at least a year on and off generally for a week of pain and then a week where its better. Progressively worsening pain. Treatment Goals Patient/Caregiver Goals Reduce pain so she can walk around her acreage doing yardwork without pain Prior Functional Status Baseline Function- ADL's Independent Baseline Function- Mobility Independent Current Functional Impairments (Reported) Functional Limitations- ADL's Limited walking, bending, yardwork Personal Factors Other Personal Factors That May Effect Pt states she has not been Therapy/Recovery tested for osteoporosis ever, hypertension, afib, asthma PT-OP-C Subjective Start: 02/01/21 07:26 Freq: Status: Active Protocol: Document 02/17/21 14:15 AMB (Rec: 02/18/21 08:24 AMB [email or web address]) OP-PT Subjective Patient Comments Patient Comments Pt has had the sharp right sided pain in her back about 2 times in the last week, and it seems to last a bit longer, but is no more frequent. Describes as stabbing like a knife. Went to chiropractor and he said she was doing well , has been james a lot. PT-OP-G Mobility & Gait Start: 02/01/21 07:26 Freq: Status: Active Protocol: Document 02/01/21 10:15 AMB (Rec: 02/02/21 15:50 AMB [email or web address]) OP Gait Assessment Comments Gait Comments Petra ambulates without AD with decreased trunk rotation but appropriate speed. 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 Palpation Assessment Location One Palpation Details Tightness throughout paraspinals, guarding and tightness on R>L QL and gluteals PT-OP-K Range of Motion Start: 02/01/21 07:26 Freq: Status: Active Protocol: Document 02/01/21 10:15 AMB (Rec: 02/02/21 15:48 AMB [email or web address]) Lumbar Spine Range of Motion Lumbar Spine Active Degrees Testing Position Standing Flexion 20 Extension 0 Lateral Flexion Left 15 Lateral Flexion Right 15 Comments extension painful- hypermobile throughout thoracic spine, lumbar spine never moves out of lordotic posture even with flexion, needs UE support to come back up from flexion PT-OP-L Special Tests Start: 02/01/21 07:26 Freq: Status: Active Protocol: Document 02/01/21 10:15 AMB (Rec: 02/02/21 15:48 AMB [email or web address]) Special Tests Lumbar Spine Special Tests Straight Leg Raise Test Results - PT-OP-M Strength Start: 02/01/21 07:26 Freq: Status: Active Protocol: Document 02/01/21 10:15 AMB (Rec: 02/02/21 15:50 AMB [email or web address]) Hip Strength Hip Manual Muscle Testing Right Flexion (L2) 4 Good Extension (S1) 4- Good- Abduction 4 Good Left Flexion (L2) 4 Good Extension (S1) 4 Good Abduction 4 Good PT-OP-Q Treatments Start: 02/01/21 07:26 Freq: Status: Active Protocol: Document 02/17/21 14:15 AMB (Rec: 02/18/21 08:24 AMB [email or web address]) Therapeutic Exercises Sidelying Exercises clamshell Side right Reps/Minutes 2x10 Standing Exercises 1 Standing Exercise Name hip flexor stretch in standing Reps/Minutes 30x3 2 Standing Exercise Name calf stretch on KHRIS Reps/Minutes 30x3 shoulder extension Resistance L2 TB Reps/Minutes 10x t band row Resistance #2 Reps/Minutes 10 Comments cues for core stabilization pec stretch Reps/Minutes 30x2 Comments in doorway- approx 70 d abd to avoid shoulder pain Other Exercises becca pose Reps/Minutes 30x3 Comments added sidebend quadruped UE ext Reps/Minutes 2x10 Comments cues for TA Manual Therapy Treatment Soft Tissue Mobilization 1 Body Location R lumbar paraspinals and gluteals Mobilization Type Myofascial Release,Rolling, Sustained Pressure Intensity/Depth Moderate Body Position Sidelying PT-OP-T Assessment and Plan Start: 02/01/21 07:26 Freq: Status: Active Protocol: Document 02/17/21 14:15 AMB (Rec: 02/18/21 08:24 AMB [email or web address]) Physical Therapy Assessment Goals Two Impairment Body mechanics Short Term Goal (STG) Petra will lift 10# from the floor to waist height with good body mechanics. STG Duration 4 weeks Custodial Goal (LTG) Petra will employ good body mechanics to perform yardowork for 1 hour without a rebound increase in her pain. LTG Duration 8 weeks Three Impairment ROM Short Term Goal (STG) Petra will show improved lumbar ROM to 10 degrees of active extension without an increase in back pain. STG Duration 4 weeks One Impairment Pain Short Term Goal (STG) Petra will walk through the grocery store without an increase in her back pain. STG Duration 4 weeks Director Home Goal (LTG) Petra will be independent and consistent with a HEP to reduce her back pain. LTG Duration 8 weeks Assessment Summary Assessment Petra did have tenderness along lumbar right paraspinals and gluteals today, which improved with manual therapy. Physical Therapy Plan Frequency and Duration Frequency of Treatment 2x/Week Duration of Treatment 8 weeks Plan of Care Start Date 02/01/21 Plan of Care End Date 03/29/21 Therapeutic Interventions Therapeutic Interventions Gait Training,Home Exercise Program,Joint Mobilizations, Manual Therapy,Neuromuscular Re-education,Self-Care/Home Management,Therapeutic Activities,Therapeutic Exercises Modalities Cold Pack/Ice Massage,Electric Stimulation,Hot Packs Next Visit Focus/Plan Next Note Type Treatment Note Next Visit Plan Add open book, hip flexor stretch and lunges to HEP. Reassess quadruped UE ext, becca pose with sidebend and clamshells given as HEP today.
--- NOTE | 2021-02-22 15:44 | PT.OTN ---
Current Diagnoses Low back pain (02/22/21) Muscle spasm of back (02/22/21) Physical Therapy Treatment Note PT-OP-A Visit Information Start: 02/01/21 07:26 Freq: Status: Active Protocol: Document 02/22/21 10:15 AMB (Rec: 02/22/21 10:53 AMB [id number]) Out-Patient Physical Therapy Visit Information Visit Information Visit Type Treatment Note Visit Start Time 10:15 Visit Stop Time 11:00 Total Visit Minutes 45 Visit Number 4 PT-OP-B Current Condition Start: 02/01/21 07:26 Freq: Status: Active Protocol: Document 02/01/21 10:15 AMB (Rec: 02/01/21 10:31 AMB [id number]) Current Condition History of Current Condition Onset Date 3 weeks Current Complaints R sharp pain in LB/hip; dull chronic muscle spasm in midback History of Current Condition R sharp pain in back 1-2x/week generally happens with walking or twisting to the right. Also notes L dull pain in low back 1-2x/week, chronic. Mid back muscle spasms bilaterally for at least a year on and off generally for a week of pain and then a week where its better. Progressively worsening pain. Treatment Goals Patient/Caregiver Goals Reduce pain so she can walk around her acreage doing yardwork without pain Prior Functional Status Baseline Function- ADL's Independent Baseline Function- Mobility Independent Current Functional Impairments (Reported) Functional Limitations- ADL's Limited walking, bending, yardwork Personal Factors Other Personal Factors That May Effect Pt states she has not been Therapy/Recovery tested for osteoporosis ever, hypertension, afib, asthma PT-OP-C Subjective Start: 02/01/21 07:26 Freq: Status: Active Protocol: Document 02/22/21 10:15 AMB (Rec: 02/22/21 10:53 AMB [id number]) OP-PT Subjective Patient Comments Patient Comments Pt had pain in right upper back last night. Thinks maybe after vacuuming. PT-OP-G Mobility & Gait Start: 02/01/21 07:26 Freq: Status: Active Protocol: Document 02/01/21 10:15 AMB (Rec: 02/02/21 15:50 AMB [email or web address]) OP Gait Assessment Comments Gait Comments Petra ambulates without AD with decreased trunk rotation but appropriate speed. 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 Palpation Assessment Location One Palpation Details Tightness throughout paraspinals, guarding and tightness on R>L QL and gluteals PT-OP-K Range of Motion Start: 02/01/21 07:26 Freq: Status: Active Protocol: Document 02/01/21 10:15 AMB (Rec: 02/02/21 15:48 AMB [email or web address]) Lumbar Spine Range of Motion Lumbar Spine Active Degrees Testing Position Standing Flexion 20 Extension 0 Lateral Flexion Left 15 Lateral Flexion Right 15 Comments extension painful- hypermobile throughout thoracic spine, lumbar spine never moves out of lordotic posture even with flexion, needs UE support to come back up from flexion PT-OP-L Special Tests Start: 02/01/21 07:26 Freq: Status: Active Protocol: Document 02/01/21 10:15 AMB (Rec: 02/02/21 15:48 AMB [email or web address]) Special Tests Lumbar Spine Special Tests Straight Leg Raise Test Results - PT-OP-M Strength Start: 02/01/21 07:26 Freq: Status: Active Protocol: Document 02/01/21 10:15 AMB (Rec: 02/02/21 15:50 AMB [email or web address]) Hip Strength Hip Manual Muscle Testing Right Flexion (L2) 4 Good Extension (S1) 4- Good- Abduction 4 Good Left Flexion (L2) 4 Good Extension (S1) 4 Good Abduction 4 Good PT-OP-Q Treatments Start: 02/01/21 07:26 Freq: Status: Active Protocol: Document 02/22/21 11:00 AMB (Rec: 02/22/21 15:44 AMB [email or web address]) Therapeutic Exercises Supine Exercises hip flexor stretch Reps/Minutes 30x3 Comments check to see if pt can do this at home Sidelying Exercises open book Reps/Minutes 5x ea side Manual Therapy Treatment Soft Tissue Mobilization 2 Body Location R rhomboids, infraspinatus, teres Mobilization Type Myofascial Release,Strumming Intensity/Depth Moderate Body Position Sidelying PT-OP-T Assessment and Plan Start: 02/01/21 07:26 Freq: Status: Active Protocol: Document 02/22/21 10:15 AMB (Rec: 02/22/21 10:53 AMB [id number]) Physical Therapy Assessment Assessment Summary Assessment Petra had pain on the right parascapular muscles today. Encouraged appropriate stretching program. Has not had stabbing back pain. Will try vacuuming with both hands to avoid rotation and report back. Physical Therapy Plan Next Visit Focus/Plan Next Note Type Treatment Note Next Visit Plan Added open book, hip flexor stretch. Can add lunges to HEP next visit. Reassess quadruped UE ext, becca pose with sidebend and clamshells given as HEP today.
--- NOTE | 2021-03-07 10:56 | PT-OP ANOTE ---
Pt no showed last scheduled appt, called and left voicemail stating that she will be discharged if we don't get a call back in the next couple of days.
--- NOTE | 2021-03-14 15:55 | PT.OPDS ---
Current Diagnoses Low back pain (02/22/21) Muscle spasm of back (02/22/21) Visit Care Team Role Provider Type ANTHONY Martinez Attending Provider Advanced Supervisor Polishing Primary Care Provider Referring Provider Specialty: Family Practice Address: [address] [place] [address], [facility] Email: [email or web address] Visit Number Visit Number 4 Discharge Summary PT-OP-B Current Condition Start: 02/01/21 07:26 Freq: Status: Active Protocol: Document 02/01/21 10:15 AMB (Rec: 02/01/21 10:31 AMB [id number]) Current Condition History of Current Condition Onset Date 3 weeks Current Complaints R sharp pain in LB/hip; dull chronic muscle spasm in midback History of Current Condition R sharp pain in back 1-2x/week generally happens with walking or twisting to the right. Also notes L dull pain in low back 1-2x/week, chronic. Mid back muscle spasms bilaterally for at least a year on and off generally for a week of pain and then a week where its better. Progressively worsening pain. Treatment Goals Patient/Caregiver Goals Reduce pain so she can walk around her acreage doing yardwork without pain Prior Functional Status Baseline Function- ADL's Independent Baseline Function- Mobility Independent Current Functional Impairments (Reported) Functional Limitations- ADL's Limited walking, bending, yardwork Personal Factors Other Personal Factors That May Effect Pt states she has not been Therapy/Recovery tested for osteoporosis ever, hypertension, afib, asthma PT-OP-C Subjective Start: 02/01/21 07:26 Freq: Status: Active Protocol: Document 02/22/21 10:15 AMB (Rec: 02/22/21 10:53 AMB [id number]) OP-PT Subjective Patient Comments Patient Comments Pt had pain in right upper back last night. Thinks maybe after vacuuming. PT-OP-G Mobility & Gait Start: 02/01/21 07:26 Freq: Status: Active Protocol: Document 02/01/21 10:15 AMB (Rec: 02/02/21 15:50 AMB [email or web address]) OP Gait Assessment Comments Gait Comments Petra ambulates without AD with decreased trunk rotation but appropriate speed. 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 Palpation Assessment Location One Palpation Details Tightness throughout paraspinals, guarding and tightness on R>L QL and gluteals PT-OP-K Range of Motion Start: 02/01/21 07:26 Freq: Status: Active Protocol: Document 02/01/21 10:15 AMB (Rec: 02/02/21 15:48 AMB [email or web address]) Lumbar Spine Range of Motion Lumbar Spine Active Degrees Testing Position Standing Flexion 20 Extension 0 Lateral Flexion Left 15 Lateral Flexion Right 15 Comments extension painful- hypermobile throughout thoracic spine, lumbar spine never moves out of lordotic posture even with flexion, needs UE support to come back up from flexion PT-OP-L Special Tests Start: 02/01/21 07:26 Freq: Status: Active Protocol: Document 02/01/21 10:15 AMB (Rec: 02/02/21 15:48 AMB [email or web address]) Special Tests Lumbar Spine Special Tests Straight Leg Raise Test Results - PT-OP-M Strength Start: 02/01/21 07:26 Freq: Status: Active Protocol: Document 02/01/21 10:15 AMB (Rec: 02/02/21 15:50 AMB [email or web address]) Hip Strength Hip Manual Muscle Testing Right Flexion (L2) 4 Good Extension (S1) 4- Good- Abduction 4 Good Left Flexion (L2) 4 Good Extension (S1) 4 Good Abduction 4 Good PT-OP-T Assessment and Plan Start: 02/01/21 07:26 Freq: Status: Active Protocol: Document 03/14/21 15:54 AMB (Rec: 03/14/21 15:55 AMB [email or web address]) Physical Therapy Assessment Assessment Summary Assessment Pt called in to cancel her last remaining appointment. She had attended 4 appointments and continued to have back pain, but had been instructed in a HEP and body mechanics. Physical Therapy Plan Discharge Physical Therapy Discharge Reasons Patient Request
== END 2021-03-15 09:07 | disposition home or self-care (01) ==
LOC: PHYS 10:15
PROVIDERS: PCP Nurse Practitioner; Referring Provider Nurse Practitioner; Visit Provider Nurse Practitioner
DX: M62.830 Muscle spasm of back (principal); M54.5 Low back pain
CPT/HCPCS: 97110; 97140; 97162; 97535

== ENCOUNTER → 2021-04-03 08:54 | Outpatient (CLI) | payer MEDICARE, OTHER, SELFPAY ==
[2021-04-03 10:26] LABS: Creatinine Urine Random 183.7 mg/dL
[2021-04-03 10:30] LABS: Alanine Aminotransferase 18 IU/L (<35); Albumin 4.1 g/dL (3.5-5.0); Albumin Globulin Ratio 1.4 (1.0-2.8); Alkaline Phosphatase 74 U/L (38-126); Aspartate Aminotransferase 29 IU/L (14-36); Bilirubin Total 0.6 mg/dL (0.2-1.3); Blood Urea Nitrogen 22 mg/dL (7-17); Calcium 9.7 mg/dL (8.4-10.2); Carbon Dioxide 31 mmol/L (22-32); Chloride 103 mmol/L (98-107); Estimated Glomerular Filt Rate 42.4 mL/min (>60); Glucose 92 mg/dL (80-110); HEMOLYSIS < 15 (0-50); Magnesium 2.3 mg/dL (1.6-2.3); Potassium 4.4 mmol/L (3.4-5.1); Sodium 139 mmol/L (137-145); Total Protein 7.1 g/dL (6.3-8.2)
[2021-04-03 10:32] LABS: Microalbumi Creatinin Ratio Ur 4.8 ug/mg CR (<30); Microalbumin Urine Random 0.9 mg/dL (0-1.6)
== END ==
PROVIDERS: PCP Nurse Practitioner; Referring Provider Nurse Practitioner; Visit Provider Nurse Practitioner
DX: E87.6 Hypokalemia (principal); I10 Essential (primary) hypertension; Z79.899 Other long term (current) drug therapy
CPT/HCPCS: 36415; 80053; 82043; 82570; 83735

== ENCOUNTER → 2021-05-01 14:06 | Outpatient (CLI) | payer MEDICARE, OTHER, SELFPAY ==
--- NOTE | 2021-05-01 14:07 | DI.MG.S_ITS ---
UNILATERAL RIGHT DIGITAL DIAGNOSTIC MAMMOGRAM 3D/2D: 05/01/2021 CLINICAL: Patient returns for a 6 month follow up of the right breast. Comparison is made to exams dated: 10/24/2020 ultrasound, 10/24/2020 mammogram, 10/12/2020 mammogram, 11/12/2018 mammogram, and 09/24/2017 mammogram - [facility]. The tissue of right breast is extremely dense, which lowers the sensitivity of mammography. There is possible architectural distortion in the right breast anterior depth central to the nipple seen on the mediolateral oblique view only. This appears less prominent when compared to the exam from 10/12/2020 and likely represents normal fibroglandular tissue. No other significant masses or calcifications are seen in the breast. IMPRESSION: PROBABLY BENIGN The possible architectural distortion in the right breast is probably benign. A follow-up mammogram in 6 months is recommended to demonstrate stability. This exam was interpreted at Station ID: [id number]. NOTE: For mammograms, a report in lay terms will be sent to the patient. Approximately 15% of breast malignancies will not be visualized mammographically. In the management of a palpable breast mass, a negative mammogram must not discourage biopsy of a clinically suspicious lesion. Electronically Signed By: Erik brandt/bethany:05/01/2021 15:34:33 letter sent: Followup Recommended ACR BI-RADS Category 3: Probably benign [id number]
--- NOTE | 2021-05-01 14:07 | DI.RAD.S_ITS ---
PROCEDURE: XR DEXA AXIAL SKELETON INDICATIONS: menopausal COMPARISON: None. FINDINGS: This blank DEXA report has been sent in error by the PACS system. The correct and complete report will be forthcoming in 1-2 days. Thank you for your patience and understanding. Dictated by: Jolynn Maldonado MD, PhD on 05/01/2021 at 16:50 Approved by: Jolynn Maldonado MD, PhD on 05/01/2021 at 16:51
== END ==
PROVIDERS: PCP Nurse Practitioner; Referring Provider Nurse Practitioner; Visit Provider Nurse Practitioner
DX: Z78.0 Asymptomatic menopausal state (principal); Z13.820 Encounter for screening for osteoporosis; R92.8 Other abnormal and inconclusive findings on diagnostic imaging of breast; M81.0 Age-related osteoporosis without current pathological fracture
CPT/HCPCS: 77065; 77080; G0279

== ENCOUNTER → 2021-10-27 09:14 | Outpatient (CLI) | payer MEDICARE, OTHER, SELFPAY ==
[2021-10-27 10:46] LABS: Alanine Aminotransferase 23 IU/L (<35); Albumin 4.2 g/dL (3.5-5.0); Albumin Globulin Ratio 1.4 (1.0-2.8); Alkaline Phosphatase 70 U/L (38-126); Aspartate Aminotransferase 33 IU/L (14-36); BUN Creatinine Ratio 17.4 (6-22); Bilirubin Total 0.7 mg/dL (0.2-1.3); Blood Urea Nitrogen 21 mg/dL (7-17); Calcium 9.4 mg/dL (8.4-10.2); Carbon Dioxide 31 mmol/L (22-32); Chloride 105 mmol/L (98-107); Cholesterol 188 mg/dL (140-199); Estimated Glomerular Filt Rate 45 mL/min (>60); Globulin 3.1 g/dL (1.7-4.1); Glucose 90 mg/dL (80-110); HDL Cholesterol 84 mg/dL (40-60); HEMOLYSIS < 15 (0-50); LDL Cholesterol Calculated 88 mg/dL (<100); Potassium 4.7 mmol/L (3.4-5.1); Sodium 141 mmol/L (137-145); Total Protein 7.3 g/dL (6.3-8.2); Triglycerides 79 mg/dL (35-150)
== END ==
PROVIDERS: PCP Nurse Practitioner; Referring Provider Internal Medicine Cardiovascular Disease; Visit Provider Internal Medicine Cardiovascular Disease
DX: E78.5 Hyperlipidemia, unspecified (principal)
CPT/HCPCS: 36415; 80053; 80061

== ENCOUNTER → 2021-10-31 13:33 | Outpatient (CLI) | payer MEDICARE, OTHER, SELFPAY ==
--- NOTE | 2021-10-31 13:34 | DI.MG.S_ITS ---
BILATERAL DIGITAL DIAGNOSTIC MAMMOGRAM 3D/2D SHORT-TERM FOLLOW-UP: 10/31/2021 CLINICAL: Short term follow up of the right breast, due for bilateral imaging. Comparison is made to exams dated: 05/01/2021 mammogram, 10/24/2020 mammogram, 10/12/2020 mammogram, and 11/12/2018 mammogram - [facility]. The tissue of both breasts is extremely dense, which lowers the sensitivity of mammography. There is possible architectural distortion in the right breast anterior depth central to the nipple seen on the mediolateral oblique view only. This is less prominent. No other significant masses, calcifications, or other findings are seen in either breast. IMPRESSION: PROBABLY BENIGN The possible architectural distortion in the right breast is probably benign. A follow-up mammogram in 12 months is recommended. This exam was interpreted at Station ID: [id number]. NOTE: For mammograms, a report in lay terms will be sent to the patient. Approximately 15% of breast malignancies will not be visualized mammographically. In the management of a palpable breast mass, a negative mammogram must not discourage biopsy of a clinically suspicious lesion. Electronically Signed By: Erik brandt/bethany:10/31/2021 14:00:49 letter sent: Followup Recommended ACR BI-RADS Category 3: Probably benign [id number]
== END ==
PROVIDERS: PCP Nurse Practitioner; Referring Provider Nurse Practitioner; Visit Provider Nurse Practitioner
DX: R92.8 Other abnormal and inconclusive findings on diagnostic imaging of breast (principal); N63.10 Unspecified lump in the right breast, unspecified quadrant
CPT/HCPCS: 77066; G0279

== ENCOUNTER 2022-02-11 14:50 | Emergency (ER) | payer MEDICARE, OTHER, SELFPAY ==
[2022-02-11 14:59] VITALS: BP 205/93; PULSE 90; RESP 18; TEMP 36.9; O2SAT 99; BMI 27.3
--- NOTE | 2022-02-11 15:17 | ED.EXTPRO ---
HPI - Extremity Problem <Tone Gardiner PA-C - Last Filed: 02/11/22 17:15> General Chief complaint: Extremity Problem,Nontraumatic Stated complaint: Sent from [facility], Ultrasound Time Seen by Provider: 02/11/22 15:17 History of Present Illness HPI Narrative: Patient is an 81-year-old female to the emergency room today complaining of pain and swelling to the left knee and leg for about 3 days. Patient states this started about 3 days ago in the back of the knee. Patient states the pain mostly worsened from night or Saturday night and from last night until this morning. States the pain has progressed to a throbbing and shooting pain that is worse with pressure and lessened with less pressure. Describes the pain as a 4-5 on a pain scale of 10 at this time. Does not describe the pain is radiating also denies any trauma or over strenuous activity to involve the left knee or left lower extremity. Related Data Home Medications Medication Instructions Recorded Confirmed acetaminophen 300 mg-codeine 30 mg 1 tab PO Q4-6H PRN headaches/sinus 10/11/20 02/11/22 tablet headache carboxymethylcellulose sodium 0.5 drp EYE-BOTH TID 10/11/20 02/11/22 % eye drops (Refresh Tears) calcium carbonate 600 mg calcium 600 mg PO BID 05/12/21 02/11/22 (1,500 mg) tablet cyclosporine 0.05 % eye drops in a 1 drp ophthalmic (eye) 09/01/21 02/11/22 dropperette (Restasis) metoprolol succinate 50 mg 25 mg PO DAILY 01/10/22 02/11/22 tablet,extended release 24 hr Previous Rx's Medication Instructions Recorded furosemide 20 mg tablet See Rx Instructions .Route 04/20/21 .COMPLEX #90 tabs cholecalciferol (vitamin D3) 125 125 mcg PO DAILY #1 tab 05/12/21 mcg (5,000 unit) tablet losartan 25 mg tablet See Rx Instructions .Route 07/22/21 .COMPLEX #180 tabs rivaroxaban 15 mg tablet (Xarelto) See Rx Instructions .Route 08/02/21 .COMPLEX #90 tabs fluticasone propionate 50 See Rx Instructions .Route 10/09/21 mcg/actuation nasal .COMPLEX #48 grams spray,suspension albuterol sulfate 90 mcg/actuation See Rx Instructions .Route 11/06/21 aerosol inhaler .COMPLEX #8.5 grams potassium chloride 10 mEq 10 meq PO .qod #90 caps 12/06/21 capsule,extended release Allergies Allergy/AdvReac Type Severity Reaction Status Date / Time beclomethasone Allergy Severe THROAT Verified 09/01/21 09:06 [From BECLOVENT] CLOSES, CAN'T BREATHE Corticosteroids Allergy Severe dyspnea, Verified 09/01/21 09:06 (Glucocorticoids) can't [CORTICOSTEROIDS beathe, (GLUCOCORTICOIDS)] anaphylaxsis salmeterol [From SEREVENT] Allergy Severe THROAT Verified 09/01/21 09:06 CLOSES, CAN'T BREATHE rosuvastatin [From Crestor] Allergy Mild muscle Verified 09/01/21 09:06 cramps Review of Systems <Tone Gardiner PA-C - Last Filed: 02/11/22 17:15> Review of Systems Narrative: REVIEW OF SYSTEMS:. General: No weight change, generally healthy, no change in strength or exercise tolerance. No fever/chill. No fatigue. Head: No headaches, no vertigo, no injury. Eyes: Normal vision, no diplopia, no tearing, no scotomata, no pain. Ears: No change in hearing, no tinnitus, no bleeding, no vertigo. Nose: No epistaxis, no coryza, no obstruction, no discharge. Mouth: No dental difficulties, no gingival bleeding, no use of dentures. Neck: No stiffness, no pain, no tenderness, no noted masses. Chest: No dyspnea, no wheezing, no hemoptysis, no cough. Heart: No chest pains, no palpitations, no syncope, no orthopnea. Abdomen: No change in appetite, no dysphagia, no abdominal pains, no bowel habit changes, no emesis, no melena. Musculoskeletal: Left leg and Left knee pain and swelling. Neurologic: No weakness, no tremor, no seizures, no changes in mentation, no ataxia. Psychiatric: No depressive symptoms, no changes in sleep habits, no changes in thought content.. ?Denies: History of immobilization or (prolonged) hospitalization ? denies: Recent surgery or trauma (typically within 12 weeks of surgery or trauma) ? not: Obesity ? denies: Previous venous thromboembolism (VTE) ? denies: Malignancy or constitutional symptoms suggestive of malignancy ? denies: Use of oral contraceptives or hormone replacement therapy ? denies: or status ? denies: Stroke with hemiplegia or immobility ? yes: Age >65 years ? denies: Family history of VTE ? denies: Heart failure ? denies: Inflammatory bowel disease 2) Wells Score of 1. Patient History <Tone Gardiner PA-C - Last Filed: 02/11/22 17:15> Medical History Allergies Asthma (~1990) Atrial fibrillation (~2012) Benign familial tremor Chicken pox Chronic anticoagulation Chronic back pain Fractures Hearing loss (~2018) Hemorrhoid (~2013) Hyperlipidemia Hypertension (~2015) Hypokalemia Lumbar spinal stenosis (~2011) Measles Mumps Osteoporosis Peripheral vascular disease Precancerous skin lesion Rosacea (~2018) Short-term memory loss Tinnitus (~2019) Whooping cough Surgical History Anesthesia History of carpal tunnel repair (~2000) History of cataract removal with insertion of prosthetic lens History of lumpectomy (~2000) History of removal of cyst (~2003) Status post dilation and curettage (~2014) Status post laparoscopy Status post surgery (08/02/17) Family History Father History of heart disease Stroke Mother History of heart disease Hyperlipidemia Hypertension Stroke Mental health problem Sister Atrial fibrillation Cancer History of heart disease Hypertension Heart valve replaced Sister Cancer History of heart disease Hyperlipidemia Hypertension Mental health problem Stroke Grandfather Mental health problem Grandmother History of heart disease Stroke Grandfather Arthritis Grandmother History of heart disease Social History Smoking Status: Never smoker Smoking Status: Never smoker Exam <Tone Gardiner PA-C - Last Filed: 02/11/22 17:15> Narrative Exam Narrative: Physical Exam: General: Normal appearance, well developed, well nourished, alert, and awake. Not in acute distress. ? Head: Normocephalic, no lesions. ?? Eyes: PERRLA, EOM's full, conjunctivae clear. ? Ears: EAC's clear, TM's normal. ?? Throat: Clear, no exudates, no lesions. ?? Neck: Supple, no masses, no thyromegaly, no bruits. ?? Chest: Lungs clear, no rales, no rhonchi, no wheezes. ?? Heart: RR, no murmurs, no rubs, no gallops. ?? Neuro: Physiological, no localizing findings, CN2-12 intact. ?? Extremities: Mild swelling to the left medial and lateral knee area. Equal calf sizes bilateral intact sensation to touch in bilateral lower extremities. Intact pedal pulses bilaterally. Good range of motion to bilateral lower extremities. Good capillary refill to bilateral lower extremities. ? PSYCHIATRIC: The mood is good, no blunted affect. Speech is clear. Thought process is linear, thought content is appropriate. The voice is without significant inflection.. Initial Vital Signs Initial Vital Signs: Vital Signs Temperature 98.4 F 02/11/22 14:59 Pulse Rate 90 02/11/22 14:59 Respiratory Rate 18 02/11/22 14:59 Blood Pressure 205/93 H 02/11/22 14:59 Pulse Oximetry 99 02/11/22 14:59 Oxygen Delivery Method 02/11/22 14:59 <Lennie Hannon DO - Last Filed: 02/12/22 10:09> Initial Vital Signs Initial Vital Signs: Vital Signs Temperature 98.4 F 02/11/22 14:59 Pulse Rate 90 02/11/22 14:59 Respiratory Rate 18 02/11/22 14:59 Blood Pressure 205/93 H 02/11/22 14:59 Pulse Oximetry 99 02/11/22 14:59 Oxygen Delivery Method 02/11/22 14:59 Course <Tone Gardiner PA-C - Last Filed: 02/11/22 17:15> Orders Ordered: ED Orders 02/11/22 15:55 US periph venous low extrem lt Stat 02/11/22 16:13 XR knee LT 3V Stat 02/11/22 16:17 CBC Auto Diff [Complete Blood Count AUTO DIFF] Stat CMP [Comprehensive Metabolic Panel] Stat D Dimer Stat PT [Prothrombin Time INR] Stat PTT [Partial Thromboplastin Time] Stat Vital Signs Vital signs: Vital Signs - 8 hr 02/11/22 14:59 Temperature 98.4 F Pulse Rate 90 Respiratory Rate 18 Blood Pressure 205/93 H Pulse Oximetry 99 Oxygen Delivery Method Room Air <Lennie Hannon DO - Last Filed: 02/12/22 10:09> Orders Ordered: ED Orders 02/11/22 15:55 US periph venous low extrem lt Stat 02/11/22 16:13 XR knee LT 3V Stat 02/11/22 16:17 CBC Auto Diff [Complete Blood Count AUTO DIFF] Stat CMP [Comprehensive Metabolic Panel] Stat D Dimer Stat PT [Prothrombin Time INR] Stat PTT [Partial Thromboplastin Time] Stat Vital Signs Vital signs: Vital Signs - 8 hr 02/11/22 14:59 Temperature 98.4 F Pulse Rate 90 Respiratory Rate 18 Blood Pressure 205/93 H Pulse Oximetry 99 Oxygen Delivery Method Room Air MDM - Extremity (Nontraumatic) <Tone Gardiner PA-C - Last Filed: 02/11/22 17:15> Lab Data Result diagrams: 02/11/22 16:17 02/11/22 16:17 Labs: Lab Results 02/11/22 02/11/22 02/11/22 Range/Units 16:17 16:17 16:17 WBC 7.3 (4.5-11.0) X10^3/uL RBC 4.49 (4.0-5.2) X10^6/uL Hgb 13.5 (12.0-16.0) g/dL Hct 39.6 (36-46) % MCV 88.3 (80-100) fL MCH 30.0 (26-34) PG MCHC 34.0 (30-36) % RDW 14.0 (11.6-14.8) % Plt Count 166 (150-400) X10^3/uL Neut % (Auto) 73.2 (50-75) % Lymph % (Auto) 16.6 L (25-40) % Kerr % (Auto) 8.7 (3-14) % Eos % (Auto) 0.9 L (2-4) % Baso % (Auto) 0.6 (0-2) % Neut # (Auto) 5300 (8310-6886) /uL Lymph # (Auto) 1200 (3975-4961) /uL Kerr # (Auto) 600 (0-900) /uL Eos # (Auto) 100 (0-450) /uL Baso # (Auto) 0 (0-100) /uL PT 13.9 H (10.1-12.7) SECONDS INR 1.2 (0.9-1.3) APTT 39 H (26-36) SECONDS D-Dimer < 500 (<500) ng/ml Sodium 137 (137-145) mmol/L Potassium 3.9 (3.4-5.1) mmol/L Chloride 101 (98-107) mmol/L Carbon Dioxide 28 (22-32) mmol/L BUN 17 (7-17) mg/dL Creatinine 0.93 (0.52-1.04) mg/dL Estimated GFR > 60 (>60) mL/min BUN/Creatinine Ratio 18.3 (6-22) Glucose 97 (80-110) mg/dL Calcium 8.9 (8.4-10.2) mg/dL Total Bilirubin 0.5 (0.2-1.3) mg/dL AST 26 (14-36) IU/L ALT 17 (<35) IU/L Alkaline Phosphatase 81 (38-126) U/L Total Protein 7.4 (6.3-8.2) g/dL Albumin 4.0 (3.5-5.0) g/dL Globulin 3.4 (1.7-4.1) g/dL Albumin/Globulin Ratio 1.2 (1.0-2.8) Imaging Data US - DVT: Radiologist's Impression: PROCEDURE:? US PERIPH VENOUS LOW EXTREM LT ? INDICATIONS:? KNEE PAIN ? TECHNIQUE:? Real-time imaging, as well as color and pulse Doppler interrogation, were performed of the lower extremity deep veins from the inguinal ligament to the popliteal fossa.? ? COMPARISON:? None. ? FINDINGS:? The common femoral, femoral and popliteal veins are normally compressible, and free of intraluminal thrombus.? Color and pulse Doppler demonstrate normal phasic intraluminal flow.? There is normal augmentation response to distal compression maneuver. ? ? ? IMPRESSION:? ? Negative for deep venous thrombosis. ? ? Dictated by: Fredy Bagley M.D. on 02/11/2022 at 15:21 ? ? Approved by: Fredy Bagley M.D. on 02/11/2022 at 15:22 ? Extremity x-ray #1: Radiologist's Impression: PROCEDURE:? XR KNEE LT 3V ? INDICATIONS:? Left knee pain ? swelling ? TECHNIQUE:? 3 views of the knee were acquired.? ? COMPARISON:? [facility], CR, XR KNEE ARTHRITIC SERIES RT, 11/01/2015, 12:32.? [facility], , US PERIPH VENOUS LOW EXTREM LT, 02/11/2022, 16:00. ? FINDINGS:? ? Bones:? No fractures or dislocations.? No suspicious bony lesions.? Generalized degenerative changes are seen. Osteophyte formation can be seen along the margins of the patella.? ? Soft tissues:? There is a zzma-rl-mkrlnjpg joint effusion.? Calcification can be seen along the joint line, which is attributed to meniscal calcification.? ? ? IMPRESSION:? Qvnb-iy-ukzmbwpo joint effusion, without an acute bony abnormality seen. ? There are generalized degenerative changes seen, which are considered to be age-appropriate. ? If it would be helpful for clinical management decision making, please consider a dedicated, scheduled knee MRI for further evaluation (assuming that there is no contraindication). ? ? Dictated by: Fredy Bagley M.D. on 02/11/2022 at 15:48 ? ? Approved by: Fredy Bagley M.D. on 02/11/2022 at 15:50 ? MDM Narrative Medical decision making narrative: Patient is 81-year-old female who presents to the emergency room today with complaint of left-sided knee and lower extremity pain and swelling for 3 days. Patient states she was seen in the [facility] today and was advised to report to the emergency room for an ultrasound. BC CMP D-dimer and coags were ordered. Lab results were received and are unremarkable except for slightly increased PT and PTT times which reflects the patient's current medication of Xarelto. Ultrasound was also ordered and was negative for DVT. X-ray was ordered and results revealed Xzqu-ur-gonihakd joint effusion, without an acute bony abnormality seen and generalized degenerative disease which are considered to be age appropriate. Patient was discharged and recommended to refrain from high 90s strenuous or overuse has activities involving the left lower extremity. Advised patient to continue OTC nonsteroidal anti-inflammatories for pain to return for any emergent concerns arise. Patient agrees with plan. <Lennie Hannon, DO - Last Filed: 02/12/22 10:09> Lab Data Labs: Lab Results 02/11/22 02/11/22 02/11/22 Range/Units 16:17 16:17 16:17 WBC 7.3 (4.5-11.0) X10^3/uL RBC 4.49 (4.0-5.2) X10^6/uL Hgb 13.5 (12.0-16.0) g/dL Hct 39.6 (36-46) % MCV 88.3 (80-100) fL MCH 30.0 (26-34) PG MCHC 34.0 (30-36) % RDW 14.0 (11.6-14.8) % Plt Count 166 (150-400) X10^3/uL Neut % (Auto) 73.2 (50-75) % Lymph % (Auto) 16.6 L (25-40) % Kerr % (Auto) 8.7 (3-14) % Eos % (Auto) 0.9 L (2-4) % Baso % (Auto) 0.6 (0-2) % Neut # (Auto) 5300 (8695-9758) /uL Lymph # (Auto) 1200 (1402-1230) /uL Kerr # (Auto) 600 (0-900) /uL Eos # (Auto) 100 (0-450) /uL Baso # (Auto) 0 (0-100) /uL PT 13.9 H (10.1-12.7) SECONDS INR 1.2 (0.9-1.3) APTT 39 H (26-36) SECONDS D-Dimer < 500 (<500) ng/ml Sodium 137 (137-145) mmol/L Potassium 3.9 (3.4-5.1) mmol/L Chloride 101 (98-107) mmol/L Carbon Dioxide 28 (22-32) mmol/L BUN 17 (7-17) mg/dL Creatinine 0.93 (0.52-1.04) mg/dL Estimated GFR > 60 (>60) mL/min BUN/Creatinine Ratio 18.3 (6-22) Glucose 97 (80-110) mg/dL Calcium 8.9 (8.4-10.2) mg/dL Total Bilirubin 0.5 (0.2-1.3) mg/dL AST 26 (14-36) IU/L ALT 17 (<35) IU/L Alkaline Phosphatase 81 (38-126) U/L Total Protein 7.4 (6.3-8.2) g/dL Albumin 4.0 (3.5-5.0) g/dL Globulin 3.4 (1.7-4.1) g/dL Albumin/Globulin Ratio 1.2 (1.0-2.8) Discharge Plan Departure Patient Disposition: Home Clinical Impression: Pain and swelling of left knee, Left knee sprain Activity Restrictions/Additional Instructions: *You have been diagnosed with [pain and swelling of the left knee secondary to a knee sprain.] Suggest to refrain from any strenuous activity involving the left lower extremity at this time. Also advised her to continue OTC nonsteroidal anti-inflammatories for pain. I also suggested ice and elevation of the lower extremity. Please return to the emergency room for any emergent concerns arise. *What to do: *Please continue to take your regular medications as directed. [ ] New medication prescriptions sent to your pharmacy: [ ] [ ] New medication written as a paper prescription [x ] No new medications given *Please follow up with your primary care provider in 2-3 days, call for an appointment. Let them know you were seen in the Emergency Department and that we ask that you be seen in follow up. We will electronically transmit a record of today's note if your PCP is in our system *If you do not have a primary care provider please contact the [facility] Resource line at [phone]. They will ask some questions about your medical history and help get you set up with a doctor in the community. *Return to Emergency Department if you should have any new, worsening or concerning symptoms, such as [fever greater than 101 F, shaking chills, worsening pain, persistent vomiting or other bothersome symptoms] Prescriptions: No Action furosemide 20 mg tablet See Rx Instructions .ROUTE .COMPLEX Qty: 90 0RF Dose Instruction: TAKE 1 TABLET(20 MG) BY MOUTH DAILY Rx Instructions: TAKE 1 TABLET(20 MG) BY MOUTH DAILY losartan 25 mg tablet See Rx Instructions .ROUTE .COMPLEX Qty: 180 3RF Dose Instruction: TAKE 1 TABLET(25 MG) BY MOUTH TWICE DAILY Rx Instructions: TAKE 1 TABLET(25 MG) BY MOUTH TWICE DAILY Xarelto 15 mg tablet See Rx Instructions .ROUTE .COMPLEX Qty: 90 3RF Dose Instruction: TAKE 1 TABLET BY MOUTH DAILY FOR ANTICOAGULATION. TAKE WITH EVENING MEAL. Rx Instructions: TAKE 1 TABLET BY MOUTH DAILY FOR ANTICOAGULATION. TAKE WITH EVENING MEAL. fluticasone propionate 50 mcg/actuation spray,suspension See Rx Instructions .ROUTE .COMPLEX Qty: 48 0RF Dose Instruction: ADMINISTER 2 SPRAYS IN EACH NOSTRIL DAILY Rx Instructions: ADMINISTER 2 SPRAYS IN EACH NOSTRIL DAILY albuterol sulfate 90 mcg/actuation HFA aerosol inhaler See Rx Instructions .ROUTE .COMPLEX Qty: 8.5 0RF Dose Instruction: INHALE 2 PUFFS INTO THE LUNGS UP TO TWICE DAILY NEEDED FOR SHORTNESS OF BREATH Rx Instructions: INHALE 2 PUFFS INTO THE LUNGS UP TO TWICE DAILY NEEDED FOR SHORTNESS OF BREATH potassium chloride 10 mEq capsule, extended release 10 meq PO .qod Qty: 90 3RF Rx Instructions: Take 1 tab by mouth every other day for potassium replacement with Furosemide metoprolol succinate 50 mg tablet extended release 24 hr 25 mg PO DAILY carboxymethylcellulose sodium [Refresh Tears] 0.5 % drops EYE-BOTH TID acetaminophen-codeine 300-30 mg tablet 1 tab PO Q4-6H PRN (Reason: headaches/sinus headache) Restasis 0.05 % dropperette 1 drp ophthalmic (eye) calcium carbonate 600 mg calcium (1,500 mg) tablet 600 mg PO BID cholecalciferol (vitamin D3) 125 mcg (5,000 unit) tablet 125 mcg PO DAILY Qty: 1 0RF Referrals: Petra Arango ARNP [Primary Care Provider] - Visit Report Forms: Patient Portal/API <Lennie Hannon DO - Last Filed: 02/12/22 10:09> Cosign ED Attending Melina Attestation: I was immediately available in the department for consultation. Documentation has been reviewed. I agree with assessment and plan.
--- NOTE | 2022-02-11 15:55 | DI.US.S_ITS ---
PROCEDURE: US PERIPH VENOUS LOW EXTREM LT INDICATIONS: KNEE PAIN TECHNIQUE: Real-time imaging, as well as color and pulse Doppler interrogation, were performed of the lower extremity deep veins from the inguinal ligament to the popliteal fossa. COMPARISON: None. FINDINGS: The common femoral, femoral and popliteal veins are normally compressible, and free of intraluminal thrombus. Color and pulse Doppler demonstrate normal phasic intraluminal flow. There is normal augmentation response to distal compression maneuver. IMPRESSION: Negative for deep venous thrombosis. Dictated by: Fredy Bagley M.D. on 02/11/2022 at 15:21 Approved by: Fredy Bagley M.D. on 02/11/2022 at 15:22
--- NOTE | 2022-02-11 16:13 | DI.RAD.S_ITS ---
PROCEDURE: XR KNEE LT 3V INDICATIONS: Left knee pain swelling TECHNIQUE: 3 views of the knee were acquired. COMPARISON: [facility], CR, XR KNEE ARTHRITIC SERIES RT, 11/01/2015, 12:32. [facility], , PERIPH VENOUS LOW EXTREM LT, 02/11/2022, 16:00. FINDINGS: Bones: No fractures or dislocations. No suspicious bony lesions. Generalized degenerative changes are seen. Osteophyte formation can be seen along the margins of the patella. Soft tissues: There is a oktc-jr-ypjgaklu joint effusion. Calcification can be seen along the joint line, which is attributed to meniscal calcification. IMPRESSION: Afex-sa-tvyjclby joint effusion, without an acute bony abnormality seen. There are generalized degenerative changes seen, which are considered to be age-appropriate. If it would be helpful for clinical management decision making, please consider a dedicated, scheduled knee MRI for further evaluation (assuming that there is no contraindication). Dictated by: Fredy Bagley M.D. on 02/11/2022 at 15:48 Approved by: Fredy Bagley M.D. on 02/11/2022 at 15:50
[2022-02-11 16:27] LABS: Add Manual Diff / Slide Review NO; Basophils Absolute Auto 0 /uL (0-100); Basophils Percent Auto 0.6 % (0-2); Eosinophils Absolute Auto 100 /uL (0-450); Eosinophils Percent Auto 0.9 % (2-4); Hematocrit 39.6 % (36-46); Hemoglobin 13.5 g/dL (12.0-16.0); Lymphocytes Absolute Auto 1200 /uL (1100-4500); Lymphocytes Percent Auto 16.6 % (25-40); Mean Corpuscular Volume 88.3 fL (80-100); Monocytes Absolute Auto 600 /uL (0-900); Monocytes Percent Auto 8.7 % (3-14); Neutrophils Absolute Auto 5300 /uL (1500-7000); Neutrophils Percent Auto 73.2 % (50-75); Platelet Count 166 X10^3/uL (150-400); Red Blood Cell Count 4.49 X10^6/uL (4.0-5.2); White Blood Cell Count 7.3 X10^3/uL (4.5-11.0)
[2022-02-11 16:38] LABS: INR 1.2 (0.9-1.3); Prothrombin Time 13.9 SECONDS (10.1-12.7)
[2022-02-11 16:39] LABS: Alanine Aminotransferase 17 IU/L (<35); Albumin Globulin Ratio 1.2 (1.0-2.8); Alkaline Phosphatase 81 U/L (38-126); Aspartate Aminotransferase 26 IU/L (14-36); BUN Creatinine Ratio 18.3 (6-22); Bilirubin Total 0.5 mg/dL (0.2-1.3); Blood Urea Nitrogen 17 mg/dL (7-17); Calcium 8.9 mg/dL (8.4-10.2); Carbon Dioxide 28 mmol/L (22-32); Chloride 101 mmol/L (98-107); D Dimer < 500 ng/ml (<500); Estimated Glomerular Filt Rate > 60 mL/min (>60); Globulin 3.4 g/dL (1.7-4.1); Glucose 97 mg/dL (80-110); HEMOLYSIS < 15 (0-50); Potassium 3.9 mmol/L (3.4-5.1); Sodium 137 mmol/L (137-145); Total Protein 7.4 g/dL (6.3-8.2)
[2022-02-11 16:40] LABS: PTT Partial Thromboplastin Tim 39 SECONDS (26-36)
[2022-02-11 17:28] VITALS: BP 176/73; PULSE 96; RESP 18; O2SAT 99
== END 2022-02-11 17:29 | disposition home or self-care (01) ==
PROVIDERS: Emergency Provider Physician Assistant; PCP Nurse Practitioner
DX: S83.92XA Sprain of unspecified site of left knee, initial encounter (principal); M25.562 Pain in left knee
CPT/HCPCS: 73562; 80053; 85025; 85379; 85610; 85730; 93971; 99281; 99284

== ENCOUNTER → 2022-02-13 11:34 | Outpatient (CLI) | payer MEDICARE, OTHER, SELFPAY ==
[2022-02-13 12:12] LABS: Uric Acid 3.6 mg/dL (2.5-6.2)
[2022-02-13 12:17] LABS: Rheumatoid Factor < 8.6 IU/mL (<12.0)
== END ==
PROVIDERS: PCP Nurse Practitioner; Visit Provider Pediatrics
DX: I10 Essential (primary) hypertension (principal); M25.462 Effusion, left knee; M25.562 Pain in left knee
CPT/HCPCS: 84550; 86430

== ENCOUNTER → 2022-04-09 09:35 | Outpatient (CLI) | payer MEDICARE, OTHER, SELFPAY ==
[2022-04-09 14:09] LABS: Alanine Aminotransferase 21 IU/L (<35); Albumin 3.8 g/dL (3.5-5.0); Albumin Globulin Ratio 1.3 (1.0-2.8); Alkaline Phosphatase 68 U/L (38-126); Aspartate Aminotransferase 30 IU/L (14-36); BUN Creatinine Ratio 19.8 (6-22); Bilirubin Total 0.6 mg/dL (0.2-1.3); Blood Urea Nitrogen 19 mg/dL (7-17); Carbon Dioxide 28 mmol/L (22-32); Chloride 104 mmol/L (98-107); Cholesterol 185 mg/dL (140-199); Estimated Glomerular Filt Rate 59 mL/min (>60); Globulin 2.9 g/dL (1.7-4.1); Glucose 77 mg/dL (80-110); HDL Cholesterol 82 mg/dL (40-60); HEMOLYSIS < 15 (0-50); LDL Cholesterol Calculated 92 mg/dL (<100); Potassium 4.3 mmol/L (3.4-5.1); Sodium 140 mmol/L (137-145); Total Protein 6.7 g/dL (6.3-8.2); Triglycerides 56 mg/dL (35-150)
[2022-04-09 14:22] LABS: T4 Total Thyroxine 7.57 ug/dL (5.5-11.0)
[2022-04-09 15:13] LABS: Folate > 20.0 ng/mL (2.76-20.0); Vitamin B12 > 1000 pg/mL (239-931)
[2022-04-16 10:38] LABS: 1,25-Dihydroxy, Vitamin D-2 <10 pg/mL (.)
== END ==
PROVIDERS: PCP Nurse Practitioner; Referring Provider Psychiatry & Neurology Neurology; Visit Provider Psychiatry & Neurology Neurology
DX: E78.5 Hyperlipidemia, unspecified (principal); E55.9 Vitamin D deficiency, unspecified; R41.3 Other amnesia
CPT/HCPCS: 36415; 80053; 80061; 82607; 82652; 82746; 84436

== ENCOUNTER → 2022-07-20 16:29 | Outpatient (CLI) | payer MEDICARE, OTHER, SELFPAY ==
[2022-07-20 17:22] LABS: Influenza A - CEPHEID Flu A NEGATIVE (NEGATIVE); Influenza B - CEPHEID Flu B NEGATIVE (NEGATIVE); Respiratory Syncytial Virus Negative (Negative)
[2022-07-20 17:42] LABS: COVID-19 CEPHEID 4-PLEX PCR POSITIVE (Negative)
== END ==
PROVIDERS: PCP Nurse Practitioner; Visit Provider Student in an Organized Health Care Education/Training Program
DX: R05.9 Cough, unspecified (principal); U07.1 COVID-19
CPT/HCPCS: 0241U

== ENCOUNTER → 2022-07-20 16:35 | Outpatient (CLI) | payer MEDICARE, OTHER, SELFPAY ==
--- NOTE | 2022-07-20 16:37 | DI.RAD.S_ITS ---
PROCEDURE: XR CHEST 2V INDICATIONS: cough, chest congestion, tachycardia TECHNIQUE: 2 views of the chest were acquired. COMPARISON: None. FINDINGS: Surgical changes and devices: None. Lungs and pleura: Lungs are clear. No pleural effusions or pneumothorax. Mediastinum: Mediastinal contours are normal. Heart size is normal. Bones and chest wall: No suspicious bony abnormalities. Soft tissues appear unremarkable. IMPRESSION: No acute cardiopulmonary process demonstrated radiographically. Dictated by: Ronnie Rodriguez M.D. on 07/20/2022 at 17:23 Approved by: Ronnie Rodriguez M.D. on 07/20/2022 at 17:24
== END ==
PROVIDERS: PCP Nurse Practitioner; Referring Provider Student in an Organized Health Care Education/Training Program; Visit Provider Student in an Organized Health Care Education/Training Program
DX: U07.1 COVID-19 (principal); J40 Bronchitis, not specified as acute or chronic; R00.0 Tachycardia, unspecified; R05.9 Cough, unspecified
CPT/HCPCS: 0241U; 71046

== ENCOUNTER → 2022-08-01 08:03 | Outpatient (CLI) | payer MEDICARE, OTHER, SELFPAY ==
--- NOTE | 2022-08-01 | DI.ECHO.S_ITS ---
[facility] +---------+ : : [address] : [place] : : : : [id number] : : : : Phone: [phone]+ Echocardiogram Report + + :Name: SAM LOPEZ Study Date: 08/01/2022 Height: 61 in : :[facility] ReadingLocation: Weight: 130 lb : : Gender: Female BSA: 1.6 m2 : :: 1940 Age: 82 yrs BP: 151/94 mmHg: :Reason For Study: TRICUSPID INSUFFICIENCY : :Ordering Physician: RYLEE, : :TRISTON Performed By: Lorene Lay : :Referring: TRISTON MCKEE : + + Interpretation Summary 1) Normal left ventricular size, thickness, wall motion, and systolic function (EF 55-60%). 2) Normal right ventricular size with low normal function. 3) There is severe biatrial enlargement. 4) There is moderate calcific aortic stenosis (valve area 1.1cm2, mean gradient 9mmHg). 5) There is moderate tricuspid regurgitation. 6) The right ventricular systolic pressure is estimated to be at least 48 mmHg based on an estimated right atrial pressure of 8 mm Hg. 7) Hypertension present during the study (BP 151/94mmHg). 8) Compared to the Echo done 09/08/2021, moderate aortic stenosis is present on this study. Procedure: A two-dimensional transthoracic echocardiogram with color flow and Doppler was performed. The study quality was technically adequate. Comparison is made with the echocardiogram of 09/08/2021. The patient was in atrial fibrillation with heart rates between 75-101 bpm during the exam. Left Ventricle: The left ventricle is normal in size. Proximal septal thickening is noted. There is normal left ventricular wall thickness. The ejection fraction is estimated to be 55-60%. Left ventricular systolic function appears normal without focal wall motion abnormalities. Diastolic parameters suggest a pseudonormalization pattern, consistent with probable elevated filling pressures. Right Ventricle: The right ventricle is normal size. Right ventricular systolic function is at the lower limits of normal. Atria: There is severe biatrial enlargement. There is no Doppler evidence for an interatrial shunt. Mitral Valve: There is mild mitral annular calcification. The mitral papillary muscle appears thickened and/or calcified. There is mild mitral regurgitation. Aortic Valve: The aortic valve is trileaflet. The aortic valve is moderately calcified. There is mildly reduced leaflet mobility. The peak aortic velocity is 2.0 m/sec. The aortic valve mean gradient is 9 mmHg. The calculated aortic valve area is 1.1 cm2. There is moderate aortic stenosis. No aortic regurgitation is present. Tricuspid Valve: The tricuspid valve leaflets are thin and pliable. There is moderate tricuspid regurgitation. The right ventricular systolic pressure is estimated to be at least 48 mmHg based on an estimated right atrial pressure of 8 mm Hg. Pulmonic Valve: The pulmonic valve leaflets are thin and pliable; valve motion is normal. There is mild pulmonic regurgitation. Great Vessels: The aortic root is normal size. The dimensions of the ascending aorta are normal. The IVC is dilated (diameter is greater than 2.1 cm) yet it collapses greater than 50% with a sniff. This suggests a right atrial pressure of 8 mm Hg. Pericardium/ Pleura There is no pericardial effusion. There is no pleural effusion. MMode/2D Measurements & Calculations LVIDd: 4.4 cm LVOT diam: 1.8 cm LVIDs: 3.1 cm Ao root diam: 2.9 cm FS: 30.9 % asc Aorta Diam: 3.3 cm IVSd: 0.71 cm Ao Arch Diam (Prox Trans): 2.9 cm LVPWd: 0.96 cm LV reynolds. diameter/BSA (cm/m^2): 2.8 LV sys. diameter/BSA (cm/m^2): 1.9 LA A2 area: 23.7 cm2 RA long axis: 6.4 cm LA A4 area: 26.4 cm2 RA area: 26.0 cm2 LA length (vol): 6.2 cm RA vol: 89.5 ml LA vol: 85.4 ml RA : 56.9 ml/m2 LA vol index: 54.3 ml/m2 IVC diam: 2.1 cm RVD1 (basal): 3.5 cm RVD2 (mid): 3.0 cm TAPSE: 1.6 cm Doppler Measurements & Calculations Ao V2 max: 201.2 cm/sec LVOT Max Gilberto: 80.3 cm/sec Ao V2 mean: 139.3 cm/sec LV V1 max P.6 mmHg Ao max P.2 mmHg LV V1 VTI: 17.2 cm Ao mean P.1 mmHg YO(I,D): 1.1 cm2 Ao V2 VTI: 40.9 cm YO(V,D): 1.0 cm2 sev ratio: 0.42 YO indexed to BSA (cm^2/m^2): 0.70 MV E max gilberto: 128.4 cm/sec TR max gilberto: 315.4 cm/sec MV A max gilberto: 1.3 cm/sec TR max P.8 mmHg MV E/A: 97.6 PA V2 max: 100.7 cm/sec Med Peak E' Gilberto: 9.1 cm/sec PA V2 mean: 73.2 cm/sec E/E' med: 14.1 PA mean P.4 mmHg Lat Peak E' Gilberto: 9.4 cm/sec PA pr(Accel): 43.0 mmHg E/E' lat: 13.7 E/e' average: 13.9 MV dec time: 0.18 sec SV(LVOT): 45.2 ml Reading Physician:11:58 AM
== END ==
PROVIDERS: PCP Nurse Practitioner; Referring Provider Internal Medicine Cardiovascular Disease; Visit Provider Internal Medicine Cardiovascular Disease
DX: I08.3 Combined rheumatic disorders of mitral, aortic and tricuspid valves (principal); I48.20 Chronic atrial fibrillation, unspecified; N28.9 Disorder of kidney and ureter, unspecified; I10 Essential (primary) hypertension; E78.2 Mixed hyperlipidemia; E87.6 Hypokalemia
CPT/HCPCS: 36415; 82043; 82570; 84439; 84443; 84481; 93306

== ENCOUNTER → 2022-08-01 16:19 | Outpatient (CLI) | payer MEDICARE, OTHER, SELFPAY ==
[2022-08-01 17:40] LABS: Free T3, Triiodothyronine Free 3.96 pg/mL (2.77-5.27); Free T4, Direct Thyroxine 1.25 ng/dL (0.78-2.19)
[2022-08-01 17:53] LABS: Thyroid Stimulating Hormone 2.92 uIU/mL (0.47-4.68)
[2022-08-01 17:55] LABS: Creatinine Urine Random 85.9 mg/dL
[2022-08-01 17:59] LABS: Microalbumi Creatinin Ratio Ur 12.8 ug/mg CR (<30); Microalbumin Urine Random 1.1 mg/dL (0-1.6)
== END ==
PROVIDERS: PCP Nurse Practitioner; Referring Provider Nurse Practitioner; Visit Provider Nurse Practitioner
DX: I48.20 Chronic atrial fibrillation, unspecified (principal); N28.9 Disorder of kidney and ureter, unspecified; I10 Essential (primary) hypertension; E78.2 Mixed hyperlipidemia; E87.6 Hypokalemia
CPT/HCPCS: 36415; 82043; 82570; 84439; 84443; 84481

== ENCOUNTER → 2022-10-31 11:34 | Outpatient (CLI) | payer MEDICARE, OTHER, SELFPAY ==
[2022-10-31 13:14] LABS: BUN Creatinine Ratio 22.3 (6-22); Blood Urea Nitrogen 23 mg/dL (7-17); Carbon Dioxide 30 mmol/L (22-32); Chloride 101 mmol/L (98-107); Estimated Glomerular Filt Rate 54 mL/min (>60); Glucose 80 mg/dL (80-110); HEMOLYSIS < 15 (0-50); Magnesium 2.1 mg/dL (1.6-2.3); Potassium 4.1 mmol/L (3.4-5.1); Sodium 137 mmol/L (137-145)
== END ==
PROVIDERS: PCP Nurse Practitioner; Referring Provider Nurse Practitioner; Visit Provider Nurse Practitioner
DX: E87.6 Hypokalemia (principal); N28.9 Disorder of kidney and ureter, unspecified; I10 Essential (primary) hypertension; R25.2 Cramp and spasm
CPT/HCPCS: 36415; 80048; 83735

== ENCOUNTER → 2022-11-06 10:03 | Outpatient (CLI) | payer MEDICARE, OTHER, SELFPAY ==
--- NOTE | 2022-11-06 10:04 | DI.MG.S_ITS ---
BILATERAL DIGITAL DIAGNOSTIC MAMMOGRAM 3D/2D SHORT-TERM FOLLOW-UP: 11/06/2022 CLINICAL: Short term follow up of the right breast, due for bilateral imaging. Comparison is made to exams dated: 10/31/2021 mammogram, 05/01/2021 mammogram, 10/24/2020 mammogram, 10/12/2020 mammogram, and 11/12/2018 mammogram - [facility]. Both breasts are extremely dense, which lowers the sensitivity of mammography (category d />75% glandular tissue). There is a possible architectural distortion in the right breast anterior depth central to the nipple seen on the mediolateral oblique view only. This is less prominent and was not seen on the prior ultrasound. No other significant masses, calcifications, or other findings are seen in either breast. Left breast scar marker. Bilateral vascular calcifications. IMPRESSION: BENIGN There is no mammographic evidence of malignancy. Possible architectural distortion in the right breast anterior depth central to the nipple is less prominent and not significantly changed compared to September 2020. This is most consistent with benign fibroglandular tissue. A 1 year screening mammogram is recommended. Exam findings were conveyed to the patient. Based on the Tyrer Cuzick model (a risk assessment model) the patient's lifetime risk is 1.2% and her 10 year risk is 0.0%. According to the ACR, ACS, and NCCN guidelines, an annual breast MRI exam along with mammogram is recommended if the patient's lifetime risk is 20% or greater. This exam was interpreted at Station ID: [id number]. NOTE: For mammograms, a report in lay terms will be sent to the patient. Approximately 15% of breast malignancies will not be visualized mammographically. In the management of a palpable breast mass, a negative mammogram must not discourage biopsy of a clinically suspicious lesion. Electronically Signed By: John Moreno M.D. slc/:11/06/2022 10:39:01 letter sent: Normal Exam ACR BI-RADS Category 2: Benign Finding(s) 3342F
== END ==
PROVIDERS: PCP Nurse Practitioner; Referring Provider Nurse Practitioner; Visit Provider Nurse Practitioner
DX: R92.8 Other abnormal and inconclusive findings on diagnostic imaging of breast (principal); N63.10 Unspecified lump in the right breast, unspecified quadrant
CPT/HCPCS: 77066; G0279

== ENCOUNTER → 2023-02-22 11:49 | Outpatient (CLI) | payer MEDICARE, OTHER, SELFPAY ==
[2023-02-22 12:52] LABS: Add Manual Diff / Slide Review NO; Basophils Absolute Auto 100 /uL (0-100); Eosinophils Absolute Auto 100 /uL (0-450); Eosinophils Percent Auto 1.7 % (2-4); Hematocrit 39.7 % (36-46); Hemoglobin 13.2 g/dL (12.0-16.0); Lymphocytes Absolute Auto 1400 /uL (1100-4500); Lymphocytes Percent Auto 27.4 % (25-40); Mean Corpuscular HGB Conc 33.3 % (30-36); Mean Corpuscular Hemoglobin 29.8 PG (26-34); Mean Corpuscular Volume 89.6 fL (80-100); Monocytes Absolute Auto 300 /uL (0-900); Monocytes Percent Auto 5.7 % (3-14); Neutrophils Absolute Auto 3300 /uL (1500-7000); Neutrophils Percent Auto 64.2 % (50-75); Platelet Count 173 X10^3/uL (150-400); Red Blood Cell Count 4.43 X10^6/uL (4.0-5.2); White Blood Cell Count 5.1 X10^3/uL (4.5-11.0)
[2023-02-22 13:42] LABS: BUN Creatinine Ratio 21.2 (6-22); Blood Urea Nitrogen 22 mg/dL (7-17); Calcium 9.4 mg/dL (8.4-10.2); Carbon Dioxide 29 mmol/L (22-32); Chloride 103 mmol/L (98-107); Estimated Glomerular Filt Rate 54 mL/min (>60); Glucose 77 mg/dL (80-110); HEMOLYSIS < 15 (0-50); Potassium 4.3 mmol/L (3.4-5.1); Sodium 136 mmol/L (137-145)
== END ==
PROVIDERS: PCP Nurse Practitioner; Referring Provider Family Medicine; Visit Provider Family Medicine
DX: Z00.00 Encounter for general adult medical examination without abnormal findings (principal); I10 Essential (primary) hypertension; I48.91 Unspecified atrial fibrillation; N18.30 Chronic kidney disease, stage 3 unspecified
CPT/HCPCS: 36415; 80048; 85025

== ENCOUNTER → 2023-09-18 09:40 | Outpatient (CLI) | payer MEDICARE, OTHER, SELFPAY ==
[2023-09-18 11:00] LABS: Alanine Aminotransferase 21 IU/L (<35); Albumin 3.9 g/dL (3.5-5.0); Albumin Globulin Ratio 1.3 (1.0-2.8); Alkaline Phosphatase 67 U/L (38-126); Aspartate Aminotransferase 29 IU/L (14-36); BUN Creatinine Ratio 25.5 (6-22); Bilirubin Total 0.7 mg/dL (0.2-1.3); Blood Urea Nitrogen 25 mg/dL (7-17); Carbon Dioxide 28 mmol/L (22-32); Chloride 107 mmol/L (98-107); Cholesterol 178 mg/dL (140-199); Estimated Glomerular Filt Rate 57 mL/min (>60); Globulin 3.1 g/dL (1.7-4.1); Glucose 90 mg/dL (80-110); HDL Cholesterol 90 mg/dL (40-60); HEMOLYSIS < 15 (0-50); LDL Cholesterol Calculated 77 mg/dL (<100); Potassium 4.4 mmol/L (3.4-5.1); Sodium 138 mmol/L (137-145); Triglycerides 56 mg/dL (35-150)
== END ==
PROVIDERS: PCP Nurse Practitioner; Referring Provider Internal Medicine Cardiovascular Disease; Visit Provider Internal Medicine Cardiovascular Disease
DX: I10 Essential (primary) hypertension (principal)
CPT/HCPCS: 36415; 80053; 80061

== ENCOUNTER → 2023-10-08 14:19 | Outpatient (CLI) | payer MEDICARE, OTHER, SELFPAY ==
--- NOTE | 2023-10-08 14:25 | DI.RAD.S_ITS ---
PROCEDURE: XR KNEE RT 3V INDICATIONS: medial pain x 6 weeks TECHNIQUE: 3 views of the knee were acquired. COMPARISON: [facility], CR, XR KNEE ARTHRITIC SERIES RT, 11/01/2015, 12:32. [facility], CR, XR KNEE LT 3V, 02/11/2022, 16:13. FINDINGS: Bones: No fractures or dislocations. No suspicious bony lesions. Interval progression of tricompartment degenerative arthritis with increase in osteophytes and development of moderate to severe medial compartment joint space loss as well as increase in medial patellofemoral joint space loss. Soft tissues: No joint effusion. No suspicious soft tissue calcifications. 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 No evidence acute bony abnormality. Dictated by: Luis Marshall M.D. on 10/08/2023 at 20:45 Approved by: Luis Marshall M.D. on 10/08/2023 at 20:46
== END ==
PROVIDERS: PCP Family Medicine; Referring Provider Physician Assistant; Visit Provider Physician Assistant
DX: M17.12 Unilateral primary osteoarthritis, left knee (principal); M25.561 Pain in right knee
CPT/HCPCS: 73562

== ENCOUNTER → 2024-02-12 11:32 | Outpatient (CLI) | payer MEDICARE, OTHER, SELFPAY ==
--- NOTE | 2024-02-12 | DI.MG.S_ITS ---
BILATERAL DIGITAL SCREENING MAMMOGRAM 3D/2D WITH CAD: 02/12/2024 CLINICAL: Routine screening. Family history of breast cancer. Comparison is made to exams dated: 11/06/2022 mammogram, 10/31/2021 mammogram, and 10/12/2020 mammogram - [facility]. Both breasts are extremely dense, which lowers the sensitivity of mammography (category d />75% glandular tissue). Current study was also evaluated with a Computer Aided Detection (CAD) system. There are benign vascular calcifications in both breasts. No significant masses, calcifications, or other findings are seen in either breast. There has been no significant interval change. IMPRESSION: BENIGN There is no mammographic evidence of malignancy. A 1 year screening mammogram is recommended. Based on the Tyrer Cuzick model (a risk assessment model) the patient's lifetime risk is 0.8% and her 10 year risk is 0.0%. According to the ACR, ACS, and NCCN guidelines, an annual breast MRI exam along with mammogram is recommended if the patient's lifetime risk is 20% or greater. This exam was interpreted at Station ID: [id number]. NOTE: For mammograms, a report in lay terms will be sent to the patient. Approximately 15% of breast malignancies will not be visualized mammographically. In the management of a palpable breast mass, a negative mammogram must not discourage biopsy of a clinically suspicious lesion. Electronically Signed By: Lupe mann/bethany:02/12/2024 16:59:40 letter sent: Normal Exam ACR BI-RADS Category 2: Benign Finding(s) 3342F
== END ==
LOC: MAMMO 11:33
PROVIDERS: PCP Family Medicine; Referring Provider Family Medicine; Visit Provider Family Medicine
DX: Z12.31 Encounter for screening mammogram for malignant neoplasm of breast (principal); Z80.3 Family history of malignant neoplasm of breast; R92.343 Mammographic extreme density, bilateral breasts
CPT/HCPCS: 77063; 77067

== ENCOUNTER → 2024-04-22 10:17 | Outpatient (CLI) | payer MEDICARE, OTHER, SELFPAY ==
[2024-04-22 11:00] LABS: Hematocrit 39.5 % (36-46); Hemoglobin 13.1 g/dL (12.0-16.0); Mean Corpuscular HGB Conc 33.3 % (30-36); Mean Corpuscular Hemoglobin 29.6 PG (26-34); Mean Corpuscular Volume 88.9 fL (80-100); Platelet Count 177 X10^3/uL (150-400); Red Blood Cell Count 4.44 X10^6/uL (4.0-5.2); Red Cell Distribution Width 14.4 % (11.6-14.8); White Blood Cell Count 4.5 X10^3/uL (4.5-11.0)
[2024-04-22 11:41] LABS: Alanine Aminotransferase 20 IU/L (<35); Albumin 3.9 g/dL (3.5-5.0); Albumin Globulin Ratio 1.2 (1.0-2.8); Alkaline Phosphatase 64 U/L (38-126); Aspartate Aminotransferase 32 IU/L (14-36); BUN Creatinine Ratio 21.7 (6-22); Bilirubin Total 0.6 mg/dL (0.2-1.3); Blood Urea Nitrogen 23 mg/dL (7-17); Calcium 9.5 mg/dL (8.4-10.2); Carbon Dioxide 29 mmol/L (22-32); Chloride 102 mmol/L (98-107); Estimated Glomerular Filt Rate 52 mL/min (>60); Globulin 3.2 g/dL (1.7-4.1); Glucose 118 mg/dL (80-110); HEMOLYSIS < 15 (0-50); Potassium 4.4 mmol/L (3.4-5.1); Sodium 135 mmol/L (137-145); Total Protein 7.1 g/dL (6.3-8.2)
== END ==
PROVIDERS: PCP Family Medicine; Referring Provider Family Medicine; Visit Provider Family Medicine
DX: Z00.00 Encounter for general adult medical examination without abnormal findings (principal); N18.30 Chronic kidney disease, stage 3 unspecified; I12.9 Hypertensive chronic kidney disease with stage 1 through stage 4 chronic kidney disease, or unspecified chronic kidney disease
CPT/HCPCS: 36415; 80053; 85027

== ENCOUNTER → 2024-04-24 12:34 | Outpatient (CLI) | payer MEDICARE, OTHER, SELFPAY ==
--- NOTE | 2024-04-24 12:35 | DI.ECHO.S_ITS ---
[facility] + [facility] : : [address] : [facility] : : [place], : : [place] [address] : : Phone: [phone] Echocardiogram Report + + :Name: SAM LOPEZ Study Date: 04/24/2024 Height: 61 in : :[facility] ReadingLocation: Weight: 125 lb : : Gender: Female BSA: 1.5 m2 : :: 1940 Age: 84 yrs BP: 169/88 mmHg: :Reason For Study: NONRHEUMATIC AORTIC VALVE STENOSIS : :Ordering Physician: GERALDINE, : :JOS Bean Performed By: Ronnie Carvajal : :Referring: JOS CHANDLER : + + Interpretation Summary The left ventricle is normal in size. The left ventricular ejection fraction is normal. The ejection fraction is estimated to be 60-65%. No significant change in LVEF. E/E' med: 24.1, suggestive of elevated LV filling pressure. The right ventricle is normal in size and function. There is severe biatrial enlargement. Both atria have remained unchanged in size since the prior echo exam. There is mild mitral regurgitation. The aortic valve is moderately calcified. There is moderately reduced leaflet mobility. The peak aortic velocity is 2.84 m/sec. The aortic valve mean gradient is 17.1 mmHg. The peak aortic velocity on the previous exam was 2.0 m/sec. The calculated aortic valve area is 1.1 cm2. sev ratio: 0.43 There is mild to moderate aortic stenosis. Compared to the prior echo study, there has been an increase in the severity of aortic stenosis. There is moderate tricuspid regurgitation. Compared to the prior echo exam, there has been no change in TR severity. The right ventricular systolic pressure is estimated to be at least 70 mmHg based on an estimated right atrial pressure of 8 mm Hg. Previously 48 mmHg. There is severe pulmonary hypertension. Compared to the prior echo exam, there has been an increase in the severity of pulmonary hypertension. There is mild luminal irregularity and echogenicity in the abdominal aorta, suggestive of aortic atherosclerotic disease. Mild atherosclerotic plaque(s) in the aortic arch. There is a small left-sided pleural effusion. Procedure: A two-dimensional transthoracic echocardiogram with color flow and Doppler was performed. The study quality was technically good. Comparison is made with the echocardiogram of 08/01/2022. The patient was in atrial fibrillation with controlled ventricular rate during the exam. Left Ventricle: The left ventricle is normal in size. There is normal left ventricular wall thickness. There is no thrombus. The ejection fraction is estimated to be 60-65%. The left ventricular ejection fraction is normal. There are no focal wall motion abnormalities. E/E' med: 24.1. Diastolic function could not be accurately assessed due to atrial fibrillation. Right Ventricle: The right ventricle is normal in size and function. Atria: There is severe biatrial enlargement. Both atria have remained unchanged in size since the prior echo exam. There is no Doppler evidence for an atrial septal defect. Mitral Valve: There is mild mitral annular calcification. The mitral valve leaflets are mildly calcified. The mitral papillary muscle appears thickened and/or calcified. No significant mitral valve stenosis. There is mild mitral regurgitation. Aortic Valve: The aortic valve is trileaflet. The aortic valve is moderately calcified. There is moderately reduced leaflet mobility. There is mild to moderate aortic stenosis. The peak aortic velocity is 2.84 m/sec. The aortic valve mean gradient is 17.1 mmHg. The calculated aortic valve area is 1.1 cm2. The peak aortic velocity on the previous exam was 2.0 m/sec. Compared to the prior echo study, there has been an increase in the severity of aortic stenosis. There is trace aortic regurgitation. Tricuspid Valve: The tricuspid valve is normal. There is moderate tricuspid regurgitation. The right ventricular systolic pressure is estimated to be at least 70 mmHg based on an estimated right atrial pressure of 8 mm Hg. Compared to the prior echo exam, there has been no change in TR severity. There is severe pulmonary hypertension. Compared to the prior echo exam, there has been an increase in the severity of pulmonary hypertension. Pulmonic Valve: The pulmonic valve is normal in structure and function. There is trace pulmonic regurgitation. Great Vessels: The aortic root is normal size. There is aortic root sclerosis/calcification. The dimensions of the ascending aorta are normal. There is mild luminal irregularity and echogenicity in the abdominal aorta, suggestive of aortic atherosclerotic disease. Mild atherosclerotic plaque(s) in the aortic arch. The pulmonary artery is normal size. The IVC is dilated (diameter is greater than 2.1 cm) yet it collapses greater than 50% with a sniff. This suggests a right atrial pressure of 8 mm Hg. Pericardium/ Pleura There is no pericardial effusion. There is a small left- sided pleural effusion. MMode/2D Measurements & Calculations LVIDd: 4.1 cm AoV Openin.86 cm LVIDs: 2.6 cm LVOT diam: 1.8 cm IVSd: 0.99 cm Ao root diam: 2.9 cm LVPWd: 1.0 cm asc Aorta Diam: 3.4 cm LV reynolds. diameter/BSA (cm/m^2): 2.6 Ao Arch Diam (Prox Trans): 2.4 cm LV sys. diameter/BSA (cm/m^2): 1.7 FS: 35.8 % EPSS: 0.37 cm LA A2 area: 26.0 cm2 RA long axis: 6.2 cm LA A4 area: 27.5 cm2 RA area: 26.2 cm2 LA length (vol): 6.8 cm RA vol: 95.1 ml LA vol: 89.7 ml RA : 61.5 ml/m2 LA vol index: 58.0 ml/m2 RVD1 (basal): 3.4 cm IVC diam: 2.2 cm RVD2 (mid): 3.0 cm TAPSE: 1.8 cm Doppler Measurements & Calculations Ao V2 max: 283.5 cm/sec LVOT Max Gilberto: 130.0 cm/sec Ao V2 mean: 194.9 cm/sec LV V1 max P.8 mmHg Ao V2 VTI: 69.0 cm LV V1 VTI: 29.9 cm Ao max P.2 mmHg Ao mean P.1 mmHg YO(I,D): 1.1 cm2 MV E max gilberto: 125.6 cm/sec YO(V,D): 1.2 cm2 MV A max gilberto: 53.6 cm/sec YO indexed to BSA (cm^2/m^2): 0.74 MV E/A: 2.3 sev ratio: 0.43 Med Peak E' Gilberto: 5.2 cm/sec E/E' med: 24.1 Lat Peak E' Gilberto: 6.8 cm/sec E/E' lat: 18.5 E/e' average: 21.3 MV dec time: 0.15 sec TR max gilberto: 394.5 cm/sec TR max P.3 mmHg PA V2 max: 81.3 cm/sec SV(LVOT): 78.7 ml PA V2 mean: 62.4 cm/sec PA mean P.7 mmHg PA pr(Accel): 36.2 mmHg Reading Physician:05:21 PM
== END ==
PROVIDERS: PCP Family Medicine; Referring Provider Nurse Practitioner; Visit Provider Nurse Practitioner
DX: I08.3 Combined rheumatic disorders of mitral, aortic and tricuspid valves (principal); I27.20 Pulmonary hypertension, unspecified; J90 Pleural effusion, not elsewhere classified; I70.0 Atherosclerosis of aorta
CPT/HCPCS: 93306

== ENCOUNTER → 2024-05-25 14:01 | Outpatient (CLI) | payer MEDICARE, OTHER, SELFPAY ==
[2024-05-25 14:52] LABS: Hematocrit 38.8 % (36-46); Hemoglobin 12.9 g/dL (12.0-16.0); Mean Corpuscular HGB Conc 33.2 % (30-36); Mean Corpuscular Hemoglobin 29.9 PG (26-34); Mean Corpuscular Volume 89.9 fL (80-100); Platelet Count 174 X10^3/uL (150-400); Red Blood Cell Count 4.31 X10^6/uL (4.0-5.2); Red Cell Distribution Width 14.5 % (11.6-14.8); White Blood Cell Count 5.6 X10^3/uL (4.5-11.0)
[2024-05-25 15:08] LABS: Alanine Aminotransferase 24 IU/L (<35); Albumin 3.9 g/dL (3.5-5.0); Albumin Globulin Ratio 1.3 (1.0-2.8); Alkaline Phosphatase 71 U/L (38-126); Aspartate Aminotransferase 39 IU/L (14-36); BUN Creatinine Ratio 22.1 (6-22); Bilirubin Total 0.5 mg/dL (0.2-1.3); Blood Urea Nitrogen 21 mg/dL (7-17); Calcium 9.3 mg/dL (8.4-10.2); Carbon Dioxide 29 mmol/L (22-32); Chloride 101 mmol/L (98-107); Estimated Glomerular Filt Rate 59 mL/min (>60); Globulin 2.9 g/dL (1.7-4.1); Glucose 74 mg/dL (80-110); HEMOLYSIS < 15 (0-50); Potassium 4.2 mmol/L (3.4-5.1); Sodium 132 mmol/L (137-145); Total Protein 6.8 g/dL (6.3-8.2)
== END ==
PROVIDERS: PCP Family Medicine; Referring Provider Nurse Practitioner; Visit Provider Nurse Practitioner
DX: I10 Essential (primary) hypertension (principal)
CPT/HCPCS: 36415; 80053; 85027

== ENCOUNTER → 2024-10-06 10:24 | Outpatient (CLI) | payer MEDICARE, OTHER, SELFPAY ==
--- NOTE | 2024-10-06 10:25 | DI.ECHO.S_ITS ---
[facility] : : [address] : : [place] : : [id number] : : Phone: [phone] Echocardiogram Report + + :Name: SAM LOPEZ Study Date: 10/06/2024 Height: 61 in : :[facility] ReadingLocation: Weight: 124 lb : : Gender: Female BSA: 1.5 m2 : :: 1940 Age: 84 yrs BP: 173/86 mmHg: :Reason For Study: AORTIC STENOSIS : :Ordering Physician: GERALDINE, : :JOS Bean Performed By: Ronnie Carvajal : :Referring: JOS CHANDLER W : + + Interpretation Summary The left ventricle is normal in size. The left ventricular ejection fraction is normal. The ejection fraction is estimated to be 60-65%. There has been no significant change in LVEF since the previous exam. The right ventricle is normal in size and function. There is severe biatrial enlargement. Both atria have remained unchanged in size since the prior echo exam. There is moderate to severe mitral annular calcification. There is mild to moderate mitral regurgitation. Previously mild MR. The aortic valve is severely calcified. There is moderate to severely reduced leaflet mobility. The peak aortic velocity is 2.74 m/sec. The aortic valve mean gradient is 17.5 mmHg. The calculated aortic valve area is 0.8 cm2. The peak aortic velocity on the previous exam was 2.84 m/sec. sev ratio: 0.37. Stroke-volume index 35 mL/mA?. Aortic cusp separation about 1.0 cm. In this study, LV outflow tract diameter 1.6 cm which appears to be accurate. On previous studies, LV outflow tract diameter reported to be 1.8 cm. Overall moderate to severe aortic stenosis. There is moderate tricuspid regurgitation. Compared to the prior echo exam, there has been no change in TR severity. The right ventricular systolic pressure is estimated to be at least 71 mmHg based on an estimated right atrial pressure of 8 mm Hg. There is severe pulmonary hypertension. Compared to the prior echo exam, there has been no change in the severity of pulmonary hypertension. Mild atherosclerotic plaque(s) in the aortic arch. Procedure: A two-dimensional transthoracic echocardiogram with color flow and Doppler was performed. The study quality was technically good. Comparison is made with the echocardiogram of 04/24/2024. The patient was in atrial fibrillation with heart rates between 58-94 bpm during the exam. Left Ventricle: The left ventricle is normal in size. There is normal left ventricular wall thickness. There is no thrombus. The ejection fraction is estimated to be 60-65%. The left ventricular ejection fraction is normal. There has been no significant change since the previous exam. There are no focal wall motion abnormalities. Diastolic function could not be accurately assessed due to atrial fibrillation. Right Ventricle: The right ventricle is normal in size and function. Atria: There is severe biatrial enlargement. Both atria have remained unchanged in size since the prior echo exam. There is no Doppler evidence for an atrial septal defect. Mitral Valve: There is moderate to severe mitral annular calcification. The mitral valve chordae are thickened and/or calcified. No significant mitral valve stenosis. There is mild to moderate mitral regurgitation. Aortic Valve: The aortic valve is trileaflet. The aortic valve is severely calcified. There is moderate to severely reduced leaflet mobility. There is moderate aortic stenosis. The peak aortic velocity is 2.74 m/sec. The aortic valve mean gradient is 17.5 mmHg. The calculated aortic valve area is 0.8 cm2. The peak aortic velocity on the previous exam was 2.84 m/sec. No aortic regurgitation is present. Tricuspid Valve: The tricuspid valve is normal. There is moderate tricuspid regurgitation. The right ventricular systolic pressure is estimated to be at least 71 mmHg based on an estimated right atrial pressure of 8 mm Hg. Compared to the prior echo exam, there has been no change in TR severity. There is severe pulmonary hypertension. Compared to the prior echo exam, there has been no change in the severity of pulmonary hypertension. Pulmonic Valve: The pulmonic valve is not well seen, but is grossly normal. There is trace pulmonic regurgitation. Great Vessels: The aortic root is normal size. The dimensions of the ascending aorta are normal. Mild atherosclerotic plaque(s) in the aortic arch. The pulmonary artery is normal size. The IVC is dilated (diameter is greater than 2.1 cm) yet it collapses greater than 50% with a sniff. This suggests a right atrial pressure of 8 mm Hg. Pericardium/ Pleura There is no pericardial effusion. There is no pleural effusion. MMode/2D Measurements & Calculations LVIDd: 3.6 cm LVOT diam: 1.6 cm LVIDs: 2.5 cm Ao root diam: 2.8 cm FS: 29.8 % asc Aorta Diam: 3.2 cm EPSS: 0.49 cm Ao Arch Diam (Prox Trans): 1.5 cm IVSd: 0.93 cm LVPWd: 0.82 cm LV reynolds. diameter/BSA (cm/m^2): 2.3 LV sys. diameter/BSA (cm/m^2): 1.6 LA A2 area: 25.9 cm2 RA long axis: 5.7 cm LA A4 area: 29.3 cm2 RA area: 28.2 cm2 LA length (vol): 7.1 cm RA vol: 119.5 ml LA vol: 90.8 ml RA : 77.5 ml/m2 LA vol index: 58.9 ml/m2 IVC diam: 2.3 cm RVD1 (basal): 3.9 cm RVD2 (mid): 3.2 cm TAPSE: 1.9 cm Doppler Measurements & Calculations Ao V2 max: 274.0 cm/sec LVOT Max Gilberto: 105.5 cm/sec Ao V2 mean: 200.2 cm/sec LV V1 max P.4 mmHg Ao max P.0 mmHg LV V1 VTI: 26.0 cm Ao mean P.5 mmHg YO(I,D): 0.77 cm2 Ao V2 VTI: 70.1 cm YO(V,D): 0.80 cm2 sev ratio: 0.37 YO indexed to BSA (cm^2/m^2): 0.50 Med Peak E' Gilberto: 6.0 cm/sec TR max gilberto: 396.2 cm/sec Lat Peak E' Gilberto: 6.7 cm/sec TR max P.8 mmHg PA V2 max: 80.3 cm/sec PA V2 mean: 59.6 cm/sec PA mean P.6 mmHg PA pr(Accel): 56.7 mmHg SV(LVOT): 54.2 ml Reading Physician:12:01 PM
== END ==
PROVIDERS: PCP Family Medicine; Referring Provider Nurse Practitioner; Visit Provider Nurse Practitioner
DX: I08.3 Combined rheumatic disorders of mitral, aortic and tricuspid valves (principal); I70.0 Atherosclerosis of aorta
CPT/HCPCS: 93306

== ENCOUNTER → 2024-10-30 09:57 | Outpatient (CLI) | payer MEDICARE, OTHER, SELFPAY ==
[2024-10-30 10:57] LABS: Add Manual Diff / Slide Review NO; Basophils Absolute Auto 100 /uL (0-100); Basophils Percent Auto 1.2 % (0-2); Eosinophils Absolute Auto 200 /uL (0-450); Hematocrit 37.8 % (36-46); Hemoglobin 13.1 g/dL (12.0-16.0); Lymphocytes Absolute Auto 1400 /uL (1100-4500); Lymphocytes Percent Auto 24.1 % (25-40); Mean Corpuscular HGB Conc 34.7 % (30-36); Mean Corpuscular Volume 86.4 fL (80-100); Monocytes Absolute Auto 500 /uL (0-900); Monocytes Percent Auto 8.8 % (3-14); Neutrophils Absolute Auto 3600 /uL (1500-7000); Neutrophils Percent Auto 62.9 % (50-75); Platelet Count 190 X10^3/uL (150-400); Red Blood Cell Count 4.37 X10^6/uL (4.0-5.2); Red Cell Distribution Width 14.4 % (11.6-14.8); White Blood Cell Count 5.7 X10^3/uL (4.5-11.0)
[2024-10-30 11:20] LABS: BUN Creatinine Ratio 23.5 (6-22); Blood Urea Nitrogen 28 mg/dL (7-17); Calcium 9.5 mg/dL (8.4-10.2); Carbon Dioxide 27 mmol/L (22-32); Chloride 98 mmol/L (98-107); Estimated Glomerular Filt Rate 45 mL/min (>60); Glucose 92 mg/dL (70-99); HEMOLYSIS < 15 (0-50); Potassium 4.8 mmol/L (3.4-5.1); Sodium 131 mmol/L (137-145)
== END ==
PROVIDERS: PCP Family Medicine; Referring Provider Internal Medicine; Visit Provider Internal Medicine
DX: I35.0 Nonrheumatic aortic (valve) stenosis (principal)
CPT/HCPCS: 36415; 80048; 85025

== ENCOUNTER 2024-11-12 15:11 | Emergency (ER) | payer MEDICARE, OTHER, SELFPAY ==
[2024-11-12 15:41] VITALS: BP 163/67; PULSE 54; RESP 20; TEMP 36.4; O2SAT 98; BMI 23.2
--- NOTE | 2024-11-12 15:47 | DI.RAD.S_ITS ---
PROCEDURE: XR WRIST RT MIN 3V INDICATIONS: glf TECHNIQUE: 3 views of the wrist were acquired. COMPARISON: None. FINDINGS: Bones: Mildly impacted with slight dorsal angulation distal radial metaphyseal fracture. No definitive intra-articular extension. Soft tissues: No suspicious soft tissue calcifications. IMPRESSION: Mildly impacted, angulated distal radial metaphyseal fracture. Dictated by: Sulema Yang M.D. on 11/12/2024 at 16:29 Approved by: Sulema Yang M.D. on 11/12/2024 at 16:30
[2024-11-12] MEDS: HYDROCODONE/ACET 5/325 TABLET 1 TAB PO (17:35)
[2024-11-12 18:45] VITALS: BP 197/88; PULSE 61; RESP 15; TEMP 36.8; O2SAT 97
--- NOTE | 2024-11-12 19:14 | ED.UPPEXIN ---
HPI - Extremity Injury (Upper) <Denise Palencia PA-C - Last Filed: 11/12/24 19:53> General Chief Complaint: Extremity Injury, Upper Stated Complaint: Fall; R Wrist Injury, on blood thinners Time Seen by Provider: 11/12/24 16:37 Mode of arrival: Ambulatory History of Present Illness HPI narrative: Ms. Cohen is a very pleasant 84-year-old female with a past medical history of AFib on Xarelto, MVR, , CKD, vertigo memory loss, asthma, PVD, HTN, HLD presents to the emergency department for right wrist pain after a ground level fall that occurred prior to arrival. Patient was working in her garden, watering colon when her heel caught on the curb and she fell forward bracing herself with her right arm. She states that she fell quite slowly and kind of rolled forward so the only trauma occurred to the right wrist, she did not hit her head or injure any other area of her body. She developed immediate pain of the right wrist. She did have an angiogram a few days ago I she is in the process of being cleared for a heart valve replacement, so on her right wrist she already had significant bruising surrounding the angiogram site however this bruising is now worse and extending more onto the hand since the fall. She has a dorsal deformity of the right wrist, she denies any numbness, tingling, weakness and she has full range of motion of all of her fingers and her hand. There is no pain of the proximal forearm or the elbow, shoulder, neck, back, lower extremities or left extremity. She does take Xarelto and she took ibuprofen prior to arrival for the pain in addition to 2.5 mg of hydrocodone. She is here with her daughter Jovita who contributes to the history. Related Data Home Medications Medication Instructions Recorded Confirmed carboxymethylcellulose sodium 0.5 drp EYE-BOTH TID 10/11/20 11/16/24 % eye drops (Refresh Tears) cyclosporine 0.05 % eye drops in a 1 drp ophthalmic (eye) 09/01/21 11/16/24 dropperette (Restasis) cyanocobalamin (B12)-cobamamide tab sublingual 10/08/23 11/16/24 5,000 mcg-100 mcg sublingual tablet (B-12 Plus) lysine 500 mg tablet (L-Lysine) 1,000 mg PO DAILY 10/08/23 11/16/24 magnesium citrate 100 mg capsule mg PO 10/08/23 11/16/24 aspirin 81 mg tablet,delayed 81 mg PO DAILY 08/25/24 11/16/24 release chlorthalidone 25 mg tablet mg PO 11/16/24 11/16/24 spironolactone 25 mg tablet 12.5 mg PO DAILY 11/16/24 11/16/24 Previous Rx's Medication Instructions Recorded cholecalciferol (vitamin D3) 125 125 mcg PO DAILY #1 tab 05/12/21 mcg (5,000 unit) tablet metoprolol succinate 50 mg 50 mg PO DAILY #90 tabs 10/22/23 tablet,extended release 24 hr rivaroxaban 15 mg tablet (Xarelto) See Rx Instructions .Route 11/13/23 .COMPLEX #90 tabs losartan 25 mg tablet See Rx Instructions .Route 02/26/24 .COMPLEX #270 tabs losartan 50 mg tablet 50 mg PO BID blood pressure #200 08/25/24 tabs triamcinolone acetonide 0.1 % 1 applic topical BID PRN rash #30 08/25/24 topical cream grams albuterol sulfate 90 mcg/actuation See Rx Instructions .Route 09/10/24 aerosol inhaler .COMPLEX #25.5 grams hydrocodone 5 mg-acetaminophen 325 1 tab PO Q4-6H PRN pain #12 tabs 11/12/25 mg tablet hydrocodone 5 mg-acetaminophen 325 0.5 - 1 tab PO Q8H PRN pain #30 11/14/25 mg tablet tabs ezetimibe 10 mg tablet 10 mg PO DAILY #90 tabs 11/16/24 Allergies Allergy/AdvReac Type Severity Reaction Status Date / Time beclomethasone Allergy Severe THROAT Verified 11/16/24 11:27 [From BECLOVENT] CLOSES, CAN'T BREATHE Corticosteroids Allergy Severe dyspnea, Verified 11/16/24 11:27 (Glucocorticoids) can't [CORTICOSTEROIDS beathe, (GLUCOCORTICOIDS)] anaphylaxsis salmeterol [From SEREVENT] Allergy Severe THROAT Verified 11/16/24 11:27 CLOSES, CAN'T BREATHE rosuvastatin [From Crestor] Allergy Mild muscle Verified 11/16/24 11:27 cramps Review of Systems <Denise Palencia PA-C - Last Filed: 11/12/24 19:53> Review of Systems ROS Unobtainable: All systems reviewed & are unremarkable except as noted in HPI and below Patient History <Denise Palencia PA-C - Last Filed: 11/12/24 19:53> Medical History Mitral valve regurgitation Aortic stenosis Peripheral arterial disease Encounter for initial annual wellness visit (AWV) in Medicare patient CKD (chronic kidney disease) stage 3, GFR 30-59 ml/min Short-term memory loss Osteoporosis Precancerous skin lesion Rosacea (~2018) Asthma (~1990) Allergies Benign familial tremor Lumbar spinal stenosis (~2011) Fractures Chronic back pain Whooping cough Measles Mumps Chicken pox Tinnitus (~2019) Hearing loss (~2018) Hemorrhoid (~2013) Peripheral vascular disease Hyperlipidemia Hypertension (~2015) Hypokalemia Atrial fibrillation (~2012) Chronic anticoagulation Surgical History Anesthesia History of removal of cyst (~2003) History of cataract removal with insertion of prosthetic lens Status post surgery (08/02/17) Status post laparoscopy Status post dilation and curettage (~2014) History of carpal tunnel repair (~2000) History of lumpectomy (~2000) Family History Father History of heart disease Stroke Mother History of heart disease Hyperlipidemia Hypertension Stroke Mental health problem Sister Atrial fibrillation Cancer History of heart disease Hypertension Heart valve replaced Sister Cancer History of heart disease Hyperlipidemia Hypertension Mental health problem Stroke Grandfather Mental health problem Grandmother History of heart disease Stroke Grandfather Arthritis Grandmother History of heart disease Social History Smoking Status: Never smoker Smoking Status: Never smoker Exam <Denise Palencia PA-C - Last Filed: 11/12/24 19:53> Narrative Exam Narrative: GENERAL: 84 year old patient appears stated age. Well-developed patient, in no acute distress. HEAD: Atraumatic. Normocephalic. EYES: PERRL. Extraocular motions intact. No scleral icterus. No injection or drainage. NECK: Trachea midline. Cervical ROM intact. CARDIOVASCULAR: Regular rate and rhythm. RESPIRATORY: ?Nonlabored respirations. ?Speaking in clear, full sentences. ?Clear to auscultation. EXTREMITIES: Gauze and Tegaderm on dorsal right wrist from prior angiogram removed with no bleeding or abnormalities. Patient does have significant ecchymosis of the dorsal right wrist majority of which was present prior to injury today and is marked with a marker. Patient has dorsal deformity of the left wrist and pain with palpation of the radial aspect of the wrist. She is strong radial pulse, brisk capillary refill in all fingertips, and sensation intact to light touch on all fingers. No tenderness to palpation of proximal forearm, elbow, humerus, shoulder or the left upper extremity or the BL LE. BACK: Nontender NEURO: AOx3. ?Clear speech. ?Moves all 4 extremities appropriately. SKIN: Ecchymosis right hand and forearm, no open wounds, no bleeding, no lacerations Initial Vital Signs Initial Vital Signs: Vital Signs Temperature 97.6 F 11/12/24 15:41 Pulse Rate 54 L 11/12/24 15:41 Respiratory Rate 11/12/24 15:41 Blood Pressure 163/67 H 11/12/24 15:41 Pulse Oximetry 98 11/12/24 15:41 Oxygen Delivery Method Room Air 11/12/24 15:41 <Aron Simmons MD - Last Filed: 11/17/24 10:32> Initial Vital Signs Initial Vital Signs: Vital Signs Temperature 97.6 F 11/12/24 15:41 Pulse Rate 54 L 11/12/24 15:41 Respiratory Rate 11/12/24 15:41 Blood Pressure 163/67 H 11/12/24 15:41 Pulse Oximetry 98 11/12/24 15:41 Oxygen Delivery Method Room Air 11/12/24 15:41 Procedures <CULLEN Klein Last Filed: 11/12/24 19:53> Orthopedic Splinting/Casting Injury #1: Side: right Upper Extremity Injury Location: wrist Other Orthopedic Equipment: other (sling) Post splinting neuro exam: intact and no change Post splinting vascular exam: no change Placed by: Nursing Additional Comments: sugartong Course <Denise Palencia PA-C - Last Filed: 11/12/24 19:53> Orders Ordered: Discontinued Medications Hydrocodone Bitart/Acetaminophen (Hydrocodone/Acet 5/325 Tablet) 1 tab PO NOW ONE Stop: 11/12/24 17:26 Last Admin: 11/12/24 17:35 Dose: 1 tab Documented By: RB Hydrocodone Bitart/Acetaminophen (Hydrocodone/Acet 5/325 Prepack) 1 bottle MISC DIRECTED ONE Stop: 11/12/24 19:09 Last Admin: 11/12/24 19:16 Dose: 1 bottle Documented By: RB Vital Signs Vital signs: Vital Signs - 8 hr 11/12/24 15:41 11/12/24 18:45 Temperature 97.6 F 98.3 F Pulse Rate 54 L 61 Respiratory Rate 20 15 Blood Pressure 163/67 H 197/88 H Pulse Oximetry 98 97 Oxygen Delivery Method Room Air Room Air <Aron Simmons MD - Last Filed: 11/17/24 10:32> Orders Ordered: Discontinued Medications Hydrocodone Bitart/Acetaminophen (Hydrocodone/Acet 5/325 Tablet) 1 tab PO NOW ONE Stop: 11/12/24 17:26 Last Admin: 11/12/24 17:35 Dose: 1 tab Documented By: RB Hydrocodone Bitart/Acetaminophen (Hydrocodone/Acet 5/325 Prepack) 1 bottle MISC DIRECTED ONE Stop: 11/12/24 19:09 Last Admin: 11/12/24 19:16 Dose: 1 bottle Documented By: RB Vital Signs Vital signs: Vital Signs - 8 hr 11/12/24 15:41 11/12/24 18:45 Temperature 97.6 F 98.3 F Pulse Rate 54 L 61 Respiratory Rate 20 15 Blood Pressure 163/67 H 197/88 H Pulse Oximetry 98 97 Oxygen Delivery Method Room Air Room Air MDM - Extremity Injury (Upper) <Denise Palencia PA-C - Last Filed: 11/12/24 19:53> Medical Records Attestation: I reviewed the patient's medical records. Imaging Data Right Wrist X-Ray: Radiologist's Impression: PROCEDURE: XR WRIST RT MIN 3V INDICATIONS: glf TECHNIQUE: 3 views of the wrist were acquired. COMPARISON: None. FINDINGS: Bones: Mildly impacted with slight dorsal angulation distal radial metaphyseal fracture. No definitive intra-articular extension. Soft tissues: No suspicious soft tissue calcifications. IMPRESSION: Mildly impacted, angulated distal radial metaphyseal fracture. Dictated by: Sulema Yang M.D. on 11/12/2024 at 16:29 Approved by: Sulema Yang M.D. on 11/12/2024 at 16:30 [facility] Narrative Medical decision making narrative: 84-year-old female with a past medical history of AFib on Xarelto, MVR, , CKD, vertigo memory loss, asthma, PVD, HTN, HLD presents to the emergency department for right wrist pain after a ground level fall that occurred prior to arrival. Differential diagnosis includes but is not limited to right wrist sprain, strain, fracture, dislocation, etc. On exam patient is in no acute distress, nontoxic appearing, vital signs appropriate with the exception of elevated blood pressure however this is consistent with patient's prior blood pressure readings. She had a mechanical, ground level fall prior to arrival resulting in right wrist pain and slight deformity, she would prior angiogram of the right wrist there is quite significant ecchymosis but majority of this is old, there is no new open wounds, no bleeding from angiogram site. Her right hand and wrist are neurovascularly intact with strong pulses, good sensation to light touch and brisk capillary refill. Right wrist x-ray obtained revealing mildly impacted with slight dorsal angulation distal radial metaphyseal fracture, no definitive intra-articular extension. Fayette ordered for pain control. Attending physician Dr. Simmons spoke with ortho surg, Dr. Dewey, who recommends sugar-tong splint and follow up, no emergency department reduction at this time. Angiogram dressing was removed and new dressing applied. Patient was placed into a right arm sugar-tong splint by nursing staff and was neurovascularly intact both before and after application of splint, she was also given a sling for comfort. Provided patient with Dr. Breaux follow up information, recommended Tylenol or [place] for pain, ED return precautions discussed, the patient and her nurse neighbor verbalized understanding of all information agreeable with the plan. She is stable for discharge home, pain improved. Discharge Plan Departure Patient Disposition: Home Clinical Impression: Ground-level fall Closed fracture of right distal radius Qualifiers: Encounter type: initial encounter Fracture morphology: unspecified fracture morphology Qualified Code(s): S52.501A - Unspecified fracture of the lower end of right radius, initial encounter for closed fracture Instructions: DI for Wrist Fracture Activity Restrictions/Additional Instructions: Dear Ms. Cohen, Thank you for coming to the emergency department. Today you were evaluated for right wrist pain and your x-ray revealed that you broke your radius bone near your right wrist. We have applied a splint which is like a temporary cast, you should keep this clean and dry however it is very important to follow up with the orthopedic surgeon as soon as possible for further evaluation and management. Please use Tylenol for mild pain and the prescribed hydrocodone-acetaminophen for severe pain. I do not recommend that you take ibuprofen since you are taking blood thinners. You may also take Acetaminophen 650 mg every 4-6 hours for pain. Do not exceed 3000 mg of Tylenol a day as this can cause liver damage. Do not drink alcohol with either of these medications. Please use RICE therapy for your pain in addition to ibuprofen/acetaminophen. Rest the painful area. Ice the area of pain/swelling for at least 15 minutes, 4x a day. Compress the area of swelling using a brace, wrap, or splint if applied. Elevate the painful or swollen extremity by supporting it above the level of the heart with pillows when sitting or laying. Return to the emergency department if you develop any new or worsening symptoms or other concerns. You have been prescribed a short course of narcotic medications. These are potentially dangerous and addictive medications that should be used carefully. While on these medications you cannot drive or operate heavy machinery. Additionally, you cannot sign legal documents or perform any duties such as this. Many people get constipated on narcotic medications so it would be advisable to discuss stool softeners with the pharmacist when you potato picker your prescription. Please understand that we cannot provide further refills of narcotics or controlled substances through the ED and your pain management will need to be through your Primary Care Provider Please follow up with your primary care doctor within the next 2-3 days for ER follow-up. (If you do not have a PCP you can call [phone]. ?to schedule an appointment with an [facility] Primary Care Provider) IF YOU DEVELOP ANY NEW OR WORSENING SYMPTOMS, RETURN TO THE ER! Please read the attached instructions, they highlight more specific treatments and interventions for you at home. Thank you for letting me participate in your care, Denise Palencia PA-C Prescriptions: New hydrocodone-acetaminophen 5-325 mg tablet 1 tab PO Q4-6H PRN (Reason: pain) Qty: 12 0RF No Action metoprolol succinate 50 mg tablet extended release 24 hr 50 mg PO DAILY Qty: 90 3RF Xarelto 15 mg tablet See Rx Instructions .ROUTE .COMPLEX Qty: 90 3RF Dose Instruction: TAKE 1 TABLET BY MOUTH DAILY FOR ANTICOAGULATION. TAKE WITH EVENING MEAL. Rx Instructions: TAKE 1 TABLET BY MOUTH DAILY FOR ANTICOAGULATION. TAKE WITH EVENING MEAL. albuterol sulfate 90 mcg/actuation HFA aerosol inhaler See Rx Instructions .ROUTE .COMPLEX Qty: 25.5 3RF Dose Instruction: INHALE 2 PUFFS INTO THE LUNGS UP TO TWICE DAILY NEEDED FOR SHORTNESS OF BREATH Rx Instructions: INHALE 2 PUFFS INTO THE LUNGS UP TO TWICE DAILY NEEDED FOR SHORTNESS OF BREATH hydrocodone-acetaminophen 5-325 mg tablet 0.5 - 1 tab PO Q8H PRN (Reason: pain) Qty: 30 0RF carboxymethylcellulose sodium [Refresh Tears] 0.5 % drops EYE-BOTH TID Restasis 0.05 % dropperette 1 drp ophthalmic (eye) losartan 25 mg tablet See Rx Instructions .ROUTE .COMPLEX Qty: 270 3RF Dose Instruction: TAKE 1 TABLET(25 MG) BY MOUTH TWICE DAILY Rx Instructions: 2 tabs in the morning and 1 tab in the evening for BP cholecalciferol (vitamin D3) 125 mcg (5,000 unit) tablet 125 mcg PO DAILY Qty: 1 0RF magnesium citrate 100 mg capsule PO Patient Comments: 2 x day lysine [L-Lysine] 500 mg tablet 1,000 mg PO DAILY cyanocobalamin-cobamamide [B-12 Plus] 5,000-100 mcg tablet, sublingual sublingual aspirin 81 mg tablet,delayed release (DR/EC) 81 mg PO DAILY losartan 50 mg tablet 50 mg PO BID Qty: 200 3RF triamcinolone acetonide 0.1 % cream 1 applic topical BID PRN (Reason: rash) Qty: 30 11RF Rx Instructions: apply to affected areas for a 2 weeks if needed then stop for 1-2 weeks. can repeat as needed. chlorthalidone 25 mg tablet PO ezetimibe 10 mg tablet 10 mg PO DAILY Qty: 90 3RF spironolactone 25 mg tablet 12.5 mg PO DAILY Referrals: Fredy Lenz DO [Primary Care Provider] - Genaro Breaux MD [Physician] - (RIGHT Mildly impacted, angulated distal radial metaphyseal fracture.) Stand Alone Forms: Patient Portal/API/Survey ED Sign-out <Aron Simmons MD - Last Filed: 11/17/24 10:32> Cosign ED Attending Cosignature Attestation: I was immediately available in the department for consultation. ?This documentation has been reviewed and I agree with assessment and plan. Supervised by Aron Simmons MD
[2024-11-12] MEDS: HYDROCODONE/ACET 5/325 PREPACK 1 BOTTLE MISC (19:16)
== END 2024-11-12 19:23 | disposition home or self-care (01) ==
PROVIDERS: Emergency Provider Physician Assistant; PCP Family Medicine
DX: S52.501A Unspecified fracture of the lower end of right radius, initial encounter for closed fracture (principal); W01.0XXA Fall on same level from slipping, tripping and stumbling without subsequent striking against object, initial encounter; Y93.H2 Activity, gardening and landscaping
CPT/HCPCS: 29105; 73110; 99283

== ENCOUNTER → 2025-03-06 09:37 | Outpatient (CLI) | payer MEDICARE, OTHER, SELFPAY ==
--- NOTE | 2025-03-06 09:39 | DI.MG.S_ITS ---
MM screening mammo BI: 03/06/2025. BI-RADS: 2 CLINICAL: 84-year old female for bilateral screening mammogram. Tyrer-Cuzick lifetime risk of 0.4%. No personal or first-degree family history of breast cancer. Current reported family history of breast cancer: maternal aunt. The patient had a prior left breast biopsy. PRIOR EXAMS 02/12/2024, 11/06/2022, 10/31/2021, 05/01/2021. MAMMOGRAPHY TECHNIQUE: 2D and 3D (tomosynthesis) digital mammographic views obtained, with additional images as needed for full coverage. Current study was also evaluated with a Computer Aided Detection (CAD) system. DENSITY D. The breasts are extremely dense, which lowers the sensitivity of mammography. MAMMOGRAPHY FINDINGS Bilateral: Typically-benign vascular calcifications noted. IMPRESSION: * No evidence of malignancy with benign findings. RECOMMENDATIONS Bilateral * Annual screening mammography. OVERALL ASSESSMENT CATEGORY BI-RADS-2: Benign. The [employer] recommends annual screening mammography beginning at age 40 for women with average risk of breast cancer. ELECTRONICALLY SIGNED: Martin Tanner M.D. on 03/07/2025 at 08:14:59 PM PT Interpreting Station ID: [id number]
[2025-03-06 11:05] LABS: Blood Urea Nitrogen 33 mg/dL (7-17); Calcium 9.8 mg/dL (8.4-10.2); Carbon Dioxide 28 mmol/L (22-32); Chloride 93 mmol/L (98-107); Cholesterol 236 mg/dL (140-199); Estimated Glomerular Filt Rate 45 mL/min (>60); Glucose 103 mg/dL (70-99); HDL Cholesterol 107 mg/dL (40-60); HEMOLYSIS < 15 (0-50); Potassium 4.4 mmol/L (3.4-5.1); Sodium 130 mmol/L (137-145); Triglycerides 60 mg/dL (35-150)
== END ==
PROVIDERS: PCP Family Medicine; Referring Provider Family Medicine; Visit Provider Family Medicine
DX: Z12.31 Encounter for screening mammogram for malignant neoplasm of breast (principal); Z00.00 Encounter for general adult medical examination without abnormal findings; R92.343 Mammographic extreme density, bilateral breasts; Z80.3 Family history of malignant neoplasm of breast; I12.9 Hypertensive chronic kidney disease with stage 1 through stage 4 chronic kidney disease, or unspecified chronic kidney disease; N18.30 Chronic kidney disease, stage 3 unspecified; I48.20 Chronic atrial fibrillation, unspecified; E78.2 Mixed hyperlipidemia
CPT/HCPCS: 36415; 77063; 77067; 80048; 80061

== ENCOUNTER 2025-04-12 09:26 | Emergency (ER) | payer MEDICARE, OTHER, SELFPAY ==
[2025-04-12] VITALS (27 sets, daily range): BP systolic 167–224; BP diastolic 77–106; PULSE 75–115; RESP 12–53; TEMP 37; O2SAT 94–99; BMI 22.6
--- NOTE | 2025-04-12 09:33 | DI.RAD.S_ITS ---
PROCEDURE: XR CHEST 1V INDICATIONS: Chest Pain TECHNIQUE: One view of the chest was acquired. COMPARISON: [facility], CR, XR CHEST 2V, 07/20/2022, 16:53. FINDINGS: Surgical changes and devices: Multiple EKG leads overlie the thorax. Lungs and pleura: Lungs are clear. No pleural effusions or pneumothorax. Lungs are hyperinflated. Mediastinum: Mediastinal contours appear normal. Heart size is normal. Atheromatous plaques are noted thoracic aorta. Bones and chest wall: No suspicious bony abnormalities. Soft tissues appear unremarkable. Multilevel degenerative disc disease noted. IMPRESSION: No acute cardiopulmonary abnormality is seen. Dictated by: Irena Keane M.D. on 04/12/2025 at 10:13 Approved by: Irena Keane M.D. on 04/12/2025 at 10:18
--- NOTE | 2025-04-12 09:41 | EKG_ITS ---
[place] [id number] [place] [id number] Test Date: 2025-04-12 Pat Name: Petra Cohen Department: [facility] Room: Gender: Female [employer]: CELSO : 1940 Requested By: Order Number: [id number] Reading MD: Homer Silverman MD Measurements Intervals [place] Rate: 119 P: [place]: QRS: 60 QRSD: 76 T: -46 QT: 272 QTc: 382 Interpretive Statements Atrial fibrillation with rapid ventricular response ST & T wave abnormality, consider inferior ischemia NO PRIOR TRACING Electronically Signed On 04-12-2025 9:49:54 PDT by Homer Silverman MD
[2025-04-12 09:54] LABS: Add Manual Diff / Slide Review NO; Hematocrit 38.5 % (36-46); Hemoglobin 13.0 g/dL (12.0-16.0); Lymphocytes Absolute Auto 1200 /uL (1100-4500); Mean Corpuscular HGB Conc 33.8 % (30-36); Mean Corpuscular Hemoglobin 29.8 PG (26-34); Mean Corpuscular Volume 88.3 fL (80-100); Platelet Count 168 X10^3/uL (150-400)
--- NOTE | 2025-04-12 10:02 | ED.ARRPALP ---
HPI - Arrhythmia/Palpitations General Chief Complaint: Arrhythmia/Palpitations Stated Complaint: Having high heart rate . x 3 days Time Seen by Provider: 04/12/25 09:41 Source: patient and family Mode of arrival: Ambulatory History of Present Illness HPI narrative: Patient is an 85-year-old female history mitral valve regurgitation aortic stenosis peripheral arterial disease atrial fibrillation on Xarelto presenting to day with chest palpitations heaviness. She reports that for the last 3 days she has felt her heart racing. Patient reports that she is chronically in atrial fibrillation she has been cardioverted numerous times and it never stays. Her heart rate is typically in the 80s. She has noted increase in her blood pressure over the last couple of days. She has all her blood pressures and heart rates documented for the last 3-4 days. She feels some heaviness in her chest. No back pain. Blood pressure is noted to be quite elevated. No significant shortness of breath but just increasing weakness. No fevers or chills. Related Data Home Medications ?Medication ?Instructions ?Recorded ?Confirmed carboxymethylcellulose sodium 0.5 drp EYE-BOTH TID 10/11/20 03/03/25 % eye drops (Refresh Tears) cyclosporine 0.05 % eye drops in a 1 drp ophthalmic (eye) 09/01/21 03/03/25 dropperette (Restasis) cyanocobalamin (B12)-cobamamide tab sublingual 10/08/23 03/03/25 5,000 mcg-100 mcg sublingual tablet (B-12 Plus) lysine 500 mg tablet (L-Lysine) 1,000 mg PO DAILY 10/08/23 03/03/25 spironolactone 25 mg tablet 12.5 mg PO DAILY 11/16/24 03/03/25 magnesium citrate 100 mg capsule mg PO DAILY 02/23/25 03/03/25 Previous Rx's ?Medication ?Instructions ?Recorded cholecalciferol (vitamin D3) 125 125 mcg PO DAILY #1 tab 05/12/21 mcg (5,000 unit) tablet albuterol sulfate 90 mcg/actuation See Rx Instructions .Route 09/10/24 aerosol inhaler .COMPLEX #25.5 grams ezetimibe 10 mg tablet 10 mg PO DAILY #90 tabs 11/16/24 rivaroxaban 15 mg tablet (Xarelto) See Rx Instructions .Route 12/02/24 .COMPLEX #90 tabs metoprolol succinate 50 mg 50 mg PO DAILY #90 tabs 12/21/24 tablet,extended release 24 hr cyclobenzaprine 5 mg tablet 5 - 10 mg (1 - 2 x 5 mg) PO TID 02/19/25 PRN muscle spasm #30 tabs hydrocodone 5 mg-acetaminophen 325 0.5 - 1 tab PO Q8H PRN pain #20 02/23/25 mg tablet tabs losartan 25 mg tablet See Rx Instructions .Route 03/03/25 .COMPLEX #270 tabs carvedilol 12.5 mg tablet (Coreg) 12.5 mg PO BID #60 tabs 04/12/25 diltiazem HCl 120 mg 120 mg PO DAILY #30 tabs 04/12/25 tablet,extended release 24 hr (Cardizem LA) Allergies Allergy/AdvReac Type Severity Reaction Status Date / Time beclomethasone (From Allergy Severe THROAT Verified 03/03/25 11:31 BECLOVENT) CLOSES, CAN'T BREATHE Corticosteroids Allergy Severe dyspnea, Verified 03/03/25 11:31 (Glucocorticoids) can't (CORTICOSTEROIDS beathe, (GLUCOCORTICOIDS)) anaphylaxsis salmeterol (From SEREVENT) Allergy Severe THROAT Verified 03/03/25 11:31 CLOSES, CAN'T BREATHE rosuvastatin (From Crestor) Allergy Mild muscle Verified 03/03/25 11:31 cramps Patient History Medical History Pulmonary nodule Mitral valve regurgitation Aortic stenosis Peripheral arterial disease Encounter for initial annual wellness visit (AWV) in Medicare patient CKD (chronic kidney disease) stage 3, GFR 30-59 ml/min Short-term memory loss Osteoporosis Precancerous skin lesion Rosacea (~2018) Asthma (~1990) Allergies Benign familial tremor Lumbar spinal stenosis (~2011) Fractures Chronic back pain Whooping cough Measles Mumps Chicken pox Tinnitus (~2019) Hearing loss (~2018) Hemorrhoid (~2013) Peripheral vascular disease Hyperlipidemia Hypertension (~2015) Hypokalemia Atrial fibrillation (~2012) Chronic anticoagulation Surgical History Anesthesia History of removal of cyst (~2003) History of cataract removal with insertion of prosthetic lens Status post surgery (08/02/17) Status post laparoscopy Status post dilation and curettage (~2014) History of carpal tunnel repair (~2000) History of lumpectomy (~2000) Family History Father History of heart disease Stroke Mother History of heart disease Hyperlipidemia Hypertension Stroke Mental health problem Sister Atrial fibrillation Cancer History of heart disease Hypertension Heart valve replaced Sister Cancer History of heart disease Hyperlipidemia Hypertension Mental health problem Stroke Grandfather Mental health problem Grandmother History of heart disease Stroke Grandfather Arthritis Grandmother History of heart disease Exam Initial Vital Signs Initial Vital Signs: Vital Signs Temperature 98.6 F 04/12/25 09:26 Pulse Rate 115 H 04/12/25 09:26 Respiratory Rate 12 04/12/25 09:26 Blood Pressure 213/103 H 04/12/25 09:26 Pulse Oximetry 98 04/12/25 09:26 Oxygen Delivery Method Room Air 04/12/25 09:26 GENERAL: Alert 85-year-old female appears uncomfortable HEENT: Head atraumatic,EOMI, pupils reactive, face symmetric, moist mucous membranes CARDIOVASCULAR: Irregularly irregular RESPIRATORY: Breath sounds equal bilaterally, no wheezes rales or rhonchi. ABDOMEN: Soft, nontender. Normoactive bowel sounds all 4 quadrants. No guarding or rebound. EXTREMITIES: Normal range of motion, no clubbing or edema. Neurovascularly intact NEUROLOGICAL: Alert and oriented x4.Normal gait and speech. Cranial nerves II through XII grossly intact. SKIN: Warm, dry, no laceration, no petechiae, no rashes or lesions. Course Orders Ordered: ED Orders 04/12/25 09:33 XR chest 1V Stat EKG-12 Lead Stat 04/12/25 09:45 Complete Blood Count AUTO DIFF Stat Comprehensive Metabolic Panel Stat Lipase Stat Magnesium Stat NT-proBNP (BNP-Adult 18+) Stat PTT Partial Thromboplastin Sandro Stat Prothrombin Time INR Stat Troponin & CK Cardiac Panel Stat 04/12/25 13:26 Trop I [Troponin I] Stat 04/12/25 14:28 CT head/brain wo con Stat Discontinued Medications Aspirin (Aspirin 81 Mg Chew Tab) 324 mg PO NOW ONE Stop: 04/12/25 09:34 Last Admin: 04/12/25 15:31 Dose: Not Given Documented By: THERESA Diltiazem HCl (Diltiazem 25 Mg/5 Ml Sdv) 10 mg IV NOW ONE Stop: 04/12/25 10:06 Last Admin: 04/12/25 10:13 Dose: 10 mg Documented By: Labetalol HCl (Labetalol 20 Mg/4 Ml Syringe) 10 mg IV NOW ONE Stop: 04/12/25 14:29 Last Admin: 04/12/25 15:07 Dose: 10 mg Documented By: THERESA Vital Signs Vital signs: Vital Signs - 8 hr 04/12/25 09:26 04/12/25 10:04 04/12/25 10:05 Temperature 98.6 F Pulse Rate 115 H 103 H Respiratory Rate 12 23 Blood Pressure 213/103 H 224/102 H Pulse Oximetry 98 98 Oxygen Delivery Method Room Air 04/12/25 10:13 04/12/25 10:19 04/12/25 10:19 Temperature Pulse Rate 112 H 90 Respiratory Rate 16 Blood Pressure 224/102 H 167/78 H Pulse Oximetry 96 Oxygen Delivery Method 04/12/25 10:30 04/12/25 10:30 04/12/25 10:45 Temperature Pulse Rate 82 75 Respiratory Rate 27 H 12 Blood Pressure 179/93 H Pulse Oximetry 98 99 Oxygen Delivery Method 04/12/25 10:45 04/12/25 11:00 04/12/25 11:00 Temperature Pulse Rate 78 Respiratory Rate 24 Blood Pressure 185/87 H 201/87 H Pulse Oximetry 99 Oxygen Delivery Method 04/12/25 11:15 04/12/25 11:15 04/12/25 11:30 Temperature Pulse Rate 79 Respiratory Rate 19 Blood Pressure 183/79 H 198/88 H Pulse Oximetry 97 Oxygen Delivery Method 04/12/25 11:30 04/12/25 11:45 04/12/25 11:45 Temperature Pulse Rate 88 83 Respiratory Rate 20 28 H Blood Pressure 195/90 H Pulse Oximetry 95 97 Oxygen Delivery Method 04/12/25 12:00 04/12/25 12:00 04/12/25 12:30 Temperature Pulse Rate 78 85 Respiratory Rate 18 30 H Blood Pressure 197/95 H Pulse Oximetry 97 98 Oxygen Delivery Method 04/12/25 12:48 04/12/25 12:48 04/12/25 13:00 Temperature Pulse Rate 89 Respiratory Rate 21 Blood Pressure 205/93 H 195/84 H Pulse Oximetry 97 Oxygen Delivery Method 04/12/25 13:00 04/12/25 13:16 04/12/25 13:16 Temperature Pulse Rate 87 97 H Respiratory Rate 18 53 H Blood Pressure 203/81 H Pulse Oximetry 98 Oxygen Delivery Method 04/12/25 13:30 04/12/25 13:30 04/12/25 13:45 Temperature Pulse Rate 83 Respiratory Rate 23 Blood Pressure 192/84 H 176/77 H Pulse Oximetry 96 Oxygen Delivery Method 04/12/25 13:45 04/12/25 14:00 04/12/25 14:00 Temperature Pulse Rate 84 79 Respiratory Rate 30 H 16 Blood Pressure 195/89 H Pulse Oximetry 95 Oxygen Delivery Method 04/12/25 14:15 04/12/25 14:15 04/12/25 14:30 Temperature Pulse Rate 81 89 Respiratory Rate 14 21 Blood Pressure 191/91 H Pulse Oximetry 98 94 Oxygen Delivery Method 04/12/25 14:30 04/12/25 14:50 04/12/25 14:50 Temperature Pulse Rate 99 H Respiratory Rate 25 H Blood Pressure 189/90 H 223/106 H Pulse Oximetry 96 Oxygen Delivery Method 04/12/25 15:00 04/12/25 15:00 04/12/25 15:07 Temperature Pulse Rate 89 94 H Respiratory Rate 19 Blood Pressure 210/91 H 210/91 H Pulse Oximetry 97 Oxygen Delivery Method 04/12/25 15:15 04/12/25 15:15 04/12/25 15:20 Temperature Pulse Rate 80 Respiratory Rate 15 Blood Pressure 204/86 H 197/90 H Pulse Oximetry 98 Oxygen Delivery Method 04/12/25 15:20 04/12/25 15:22 04/12/25 15:22 Temperature Pulse Rate 79 78 Respiratory Rate 15 33 H Blood Pressure 181/88 H Pulse Oximetry 97 96 Oxygen Delivery Method MDM - Arrhythmia/Palpitations Lab Data 04/12/25 09:45 04/12/25 09:45 Labs: Lab Results 04/12/25 04/12/25 Range/Units 09:45 13:26 WBC 4.8 (4.5-11.0) X10^3/uL RBC 4.36 (4.0-5.2) X10^6/uL Hgb 13.0 (12.0-16.0) g/dL Hct 38.5 (36-46) % MCV 88.3 (80-100) fL MCH 29.8 (26-34) PG MCHC 33.8 (30-36) % RDW 13.4 (11.6-14.8) % Plt Count 168 (150-400) X10^3/uL Neut % (Auto) 63.4 (50-75) % Lymph % (Auto) 25.2 (25-40) % [place] % (Auto) 9.3 (3-14) % Eos % (Auto) 1.3 L (2-4) % Baso % (Auto) 0.8 (0-2) % Neut # (Auto) 3000 (9440-6669) /uL Lymph # (Auto) 1200 (7663-4938) /uL [place] # (Auto) 400 (0-900) /uL Eos # (Auto) 100 (0-450) /uL Baso # (Auto) 0 (0-100) /uL PT 11.6 (9.4-12.5) SECONDS INR 1.0 (0.9-1.3) APTT 31 (25.1-36.5) SECONDS Sodium 132 L (137-145) mmol/L Potassium 3.9 (3.4-5.1) mmol/L Chloride 99 (98-107) mmol/L Carbon Dioxide 26 (22-32) mmol/L BUN 22 H (7-17) mg/dL Creatinine 1.06 H (0.52-1.04) mg/dL Estimated GFR 51 L (>60) mL/min BUN/Creatinine Ratio 20.8 (6-22) Glucose 100 H (70-99) mg/dL Calcium 9.6 (8.4-10.2) mg/dL Magnesium 1.8 (1.6-2.3) mg/dL Total Bilirubin 0.6 (0.2-1.3) mg/dL AST 30 (14-36) IU/L ALT 21 (<35) IU/L Alkaline Phosphatase 68 (38-126) U/L Total Creatine Kinase 31 (30-135) U/L Troponin I 0.014 0.013 (0.01-0.034) ng/mL NT-Pro-B Natriuret Pep 1500 H (<450) pg/mL Total Protein 7.7 (6.3-8.2) g/dL Albumin 4.3 (3.5-5.0) g/dL Globulin 3.4 (1.7-4.1) g/dL Albumin/Globulin Ratio 1.3 (1.0-2.8) Lipase 259 (23-300) U/L Imaging Data CT scan - head: Radiologist's Impresson: PROCEDURE: CT HEAD/BRAIN WO CON INDICATIONS: headache HTN TECHNIQUE: Noncontrast 4.5 mm thick angled axial sections acquired from the foramen magnum to the vertex, with coronal and sagittal reformats. For radiation dose reduction, the following was used: automated exposure control, adjustment of mA and/or kV according to patient size. COMPARISON: None. FINDINGS: Image quality: Diagnostic. CSF spaces: Basal cisterns are patent. No extra-axial fluid collections. The ventricles are symmetric in size and shape. Brain: No acute intracranial hemorrhage or mass effect. There is cerebral volume loss, with resultant ventricular and sulcal prominence. There are periventricular and deep white matter chronic small vessel ischemic changes. There is intracranial internal carotid artery atherosclerosis. Skull and face: Calvarium and visualized facial bones appear intact, without suspicious lesions. Sinuses: Visualized sinuses and mastoids are clear. IMPRESSION: 1. No acute intracranial pathology. 2. [id number]-[id number] chronic microvascular ischemic changes and generalized parenchymal volume loss. Approved by: Erik Britt M.D. on 04/12/2025 at 14:47 Chest x-ray: Radiologist's Impresson: PROCEDURE: XR CHEST 1V INDICATIONS: Chest Pain TECHNIQUE: One view of the chest was acquired. COMPARISON: [facility], , XR CHEST 2V, 07/20/2022, 16:53. FINDINGS: Surgical changes and devices: Multiple EKG leads overlie the thorax. Lungs and pleura: Lungs are clear. No pleural effusions or pneumothorax. Lungs are hyperinflated. Mediastinum: Mediastinal contours appear normal. Heart size is normal. Atheromatous plaques are noted thoracic aorta. Bones and chest wall: No suspicious bony abnormalities. Soft tissues appear unremarkable. Multilevel degenerative disc disease noted. IMPRESSION: No acute cardiopulmonary abnormality is seen. Dictated by: Irena Keane M.D. on 04/12/2025 at 10:13 ECG Data Attestation: I personally reviewed and interpreted this ECG as follows: Prior ECG tracings: not available for review Interpretation: Atrial fibrillation rate [address] changes MDM Narrative Medical decision making narrative: MDM CC: Chest pain heart palpitations Complicating co-morbidities: Atrial fibrillation on anticoagulation cardiac valve disease Data collected from: [facility],patient Medical records reviewed: PCP records reviewed from March. Echo from 10/06/2024 shows normal left ventricular size EF is 60-65% no significant change from prior, he does have moderate to severe mitral annular calcification with [id number] mitral regurgitation, aortic valve severely calcified aortic velocity is 2.74 Differential considered: AFib with RVR congestive heart failure, hypertensive emergency/seen Exam documented above, pertinent findings include: Alert 85-year-old female appears to not feel well irregular heart rate Lab Test results independently reviewed as above. Pertinent findings: Troponin 0.014-->0.013 BNP 1500 CBC no leukocytosis no anemia CMP chronic hyponatremia sodium is 132 previously 130 potassium stable 3.9 no HECTOR Bilirubin liver enzymes lipase all within normal limits Independently reviewed EKG as above Atrial fibrillation rate 119 Imaging studies independently reviewed: Chest x-ray no acute cardiopulmonary process Head CT no intracranial process Consultations: Dr. Shane, cardiology updated patient's symptoms test results recommends stopping metoprolol increasing Coreg to 12.5 mg twice a day and starting Cardizem 120 mg daily. Reports that she had heart catheterization earlier this year which was negative. Treatments: Cardizem, patient also took her home medications of metoprolol and losartan in the ED, Labetalol 10 mg Re-evaluations: Patient blood pressure did improve after labetalol Discussion: Patient 85-year-old female presenting today with headache elevated blood pressure her palpitations. She reports that she is chronically in atrial fibrillation she remains in AFib with rate controlled. However blood pressure does fluctuate quite a bit. She responded well to Cardizem but it slowly increased back up. She can tell that her blood pressure is going up because she gets a headache. She has no evidence of end-organ damage. Head CT does not show any evidence of intracranial hemorrhage. At this time we will increase her metoprolol to twice daily to help control her heart rate and blood pressure. Discharge Plan Departure Patient Disposition: Home Clinical Impression: Atrial fibrillation Qualifiers: Atrial fibrillation type: unspecified chronic Qualified Code(s): I48.20 - Chronic atrial fibrillation, unspecified Hypertension Qualifiers: Hypertension type: essential hypertension Qualified Code(s): I10 - Essential (primary) hypertension Instructions: DI for Atrial Fibrillation Activity Restrictions/Additional Instructions: *You have been diagnosed with atrial fibrillation hypertension *What to do: At this time let us increase some medication please continue to record your blood pressure and heart rate. You will need to follow up with your primary care provider *Continue to take medications as directed STOP METOPROLOL Carvedilol 12.5 mg twice a day Cardizem long-acting 120 mg once a day *Follow up with your primary care provider in 2-3 days or call [phone] Call your primary care provider today to schedule appointment *Return to ER if you should have increasing chest pain shortness of breath weakness ongoing headache nausea vomiting [or] any new, worsening or concerning symptoms Prescriptions: New carvedilol [Coreg] 12.5 mg tablet 12.5 mg PO BID Qty: 60 0RF Rx Instructions: must administer with a meal/food diltiazem HCl [Cardizem LA] 120 mg tablet extended release 24 hr 120 mg PO DAILY Qty: 30 0RF No Action albuterol sulfate 90 mcg/actuation HFA aerosol inhaler See Rx Instructions .ROUTE .COMPLEX Qty: 25.5 3RF Dose Instruction: INHALE 2 PUFFS INTO THE LUNGS UP TO TWICE DAILY NEEDED FOR SHORTNESS OF BREATH Rx Instructions: INHALE 2 PUFFS INTO THE LUNGS UP TO TWICE DAILY NEEDED FOR SHORTNESS OF BREATH Xarelto 15 mg tablet See Rx Instructions .ROUTE .COMPLEX Qty: 90 3RF Dose Instruction: TAKE 1 TABLET BY MOUTH DAILY FOR ANTICOAGULATION. TAKE WITH EVENING MEAL. Rx Instructions: TAKE 1 TABLET BY MOUTH DAILY FOR ANTICOAGULATION. TAKE WITH EVENING MEAL. metoprolol succinate 50 mg tablet extended release 24 hr 50 mg PO DAILY Qty: 90 3RF cyclobenzaprine 5 mg tablet 5 - 10 mg PO TID PRN (Reason: muscle spasm) Qty: 30 2RF carboxymethylcellulose sodium [Refresh Tears] 0.5 % drops EYE-BOTH TID Restasis 0.05 % dropperette 1 drp ophthalmic (eye) cholecalciferol (vitamin D3) 125 mcg (5,000 unit) tablet 125 mcg PO DAILY Qty: 1 0RF lysine [L-Lysine] 500 mg tablet 1,000 mg PO DAILY cyanocobalamin-cobamamide [B-12 Plus] 5,000-100 mcg tablet, sublingual sublingual magnesium citrate 100 mg capsule PO DAILY Patient Comments: 2 x day losartan 25 mg tablet See Rx Instructions .ROUTE .COMPLEX Qty: 270 3RF Dose Instruction: TAKE 1 TABLET(25 MG) BY MOUTH TWICE DAILY Rx Instructions: 2 tabs in the morning and 1 tab in the evening for BP ezetimibe 10 mg tablet 10 mg PO DAILY Qty: 90 3RF spironolactone 25 mg tablet 12.5 mg PO DAILY hydrocodone-acetaminophen 5-325 mg tablet 0.5 - 1 tab PO Q8H PRN (Reason: pain) Qty: 20 0RF Referrals: Fredy Lenz DO [Primary Care Provider, Family Practice] Stand Alone Forms: Patient Portal/API
[2025-04-12 10:10] LABS: INR 1.0 (0.9-1.3); Prothrombin Time 11.6 SECONDS (9.4-12.5)
[2025-04-12 10:13] LABS: PTT Partial Thromboplastin Tim 31 SECONDS (25.1-36.5)
[2025-04-12 10:15] LABS: Alanine Aminotransferase 21 IU/L (<35); Albumin 4.3 g/dL (3.5-5.0); Albumin Globulin Ratio 1.3 (1.0-2.8); Alkaline Phosphatase 68 U/L (38-126); Blood Urea Nitrogen 22 mg/dL (7-17); Calcium 9.6 mg/dL (8.4-10.2); Carbon Dioxide 26 mmol/L (22-32); Chloride 99 mmol/L (98-107); Creatine Kinase 31 U/L (30-135); Estimated Glomerular Filt Rate 51 mL/min (>60); Globulin 3.4 g/dL (1.7-4.1); Glucose 100 mg/dL (70-99); HEMOLYSIS < 15 (0-50); Lipase 259 U/L (23-300); Magnesium 1.8 mg/dL (1.6-2.3); Potassium 3.9 mmol/L (3.4-5.1); Sodium 132 mmol/L (137-145); Total Protein 7.7 g/dL (6.3-8.2)
[2025-04-12 10:27] LABS: NT-proBNP (BNP-Adult 18+) 1500 pg/mL (<450); Troponin I 0.014 ng/mL (0.01-0.034)
--- NOTE | 2025-04-12 10:59 | PC.NURSE ---
04/12/2025 @1058 RN spoke w/ Dr. Hannon about patient BP readings. Provider aware and discussed plan of care to continue to cycle blood pressure readings. Pt asymptomatic and resting comfortable in bed reading.
[2025-04-12 14:00] LABS: Troponin I 0.013 ng/mL (0.01-0.034)
--- NOTE | 2025-04-12 14:28 | DI.CT.S_ITS ---
PROCEDURE: CT HEAD/BRAIN WO CON INDICATIONS: headache HTN TECHNIQUE: Noncontrast 4.5 mm thick angled axial sections acquired from the foramen magnum to the vertex, with coronal and sagittal reformats. For radiation dose reduction, the following was used: automated exposure control, adjustment of mA and/or kV according to patient size. COMPARISON: None. FINDINGS: Image quality: Diagnostic. CSF spaces: Basal cisterns are patent. No extra-axial fluid collections. The ventricles are symmetric in size and shape. Brain: No acute intracranial hemorrhage or mass effect. There is cerebral volume loss, with resultant ventricular and sulcal prominence. There are periventricular and deep white matter chronic small vessel ischemic changes. There is intracranial internal carotid artery atherosclerosis. Skull and face: Calvarium and visualized facial bones appear intact, without suspicious lesions. Sinuses: Visualized sinuses and mastoids are clear. IMPRESSION: 1. No acute intracranial pathology. 2. [id number] chronic microvascular ischemic changes and generalized parenchymal volume loss. Approved by: Erik Britt M.D. on 04/12/2025 at 14:47
[2025-04-12] MEDS: LABETALOL 20 MG/4 ML SYRINGE 10 MG IV (15:07)
== END 2025-04-12 15:50 | disposition home or self-care (01) ==
PROVIDERS: Emergency Provider Emergency Medicine; PCP Family Medicine
DX: I48.20 Chronic atrial fibrillation, unspecified (principal); I10 Essential (primary) hypertension; R07.9 Chest pain, unspecified; R51.9 Headache, unspecified; Z79.01 Long term (current) use of anticoagulants
CPT/HCPCS: 36415; 70450; 71045; 80053; 82550; 83690; 83735; 83880; 84484; 85025; 85610; 85730; 93005; 93010; 96374; 96375; 99284